=== PATIENT | male | born 1955 | race Caucasian/White ===

== ENCOUNTER → 2017-03-22 | Outpatient (CLI) | payer BC ==
[~2017-03-22] MED LIST: DIPH25TA82 PEG; FAMO-119 PEG; HYDR-757 PEG; LISI40TA PO; LISINOPRIL PO; LVT.1T PEG; METFORMIN PO; MTF500T PO; ONDN4T PEG; SILD20TA2 PEG; TMZP15C PEG; TREP1.743 IH; WARF1TAB6 PEG; WARF6TAB19 PEG; WARFARIN; [UNRECOGNIZED DRUG - OTHER] PEG
--- NOTE | 2017-03-23 11:09 | ECHOCARDIOGRAPHY REPORT ---
DATE OF SERVICE: 03/22/2017 DATE OF SERVICE: 03/22/2017. ORDERING PHYSICIAN: Dr. Ta. CLINICAL DIAGNOSIS: Pulmonary hypertension. MEASUREMENTS: 1. Left atrium 4. 2. Aortic root 3.7. 3. LV diameter, diastolic 4.7. 4. IVS thickness, diastolic 1.2. 5. LVPW thickness, diastolic 1.2. DESCRIPTION: Two-dimensional echocardiography shows normal global left ventricular systolic function with normal regional wall motion. There is mild aortic valve sclerosis. There is no significant pericardial effusion. Doppler imaging shows trivial to mild mitral and tricuspid regurgitation. There is no Doppler evidence of any significant valvular stenosis. Mitral inflow is consistent with grade 1 diastolic dysfunction of the left ventricle. There is no evidence of any significant intracardiac shunt on this transthoracic echocardiographic study. Inferior vena cava is of normal size and does exhibit inspiratory collapse. Pulmonary artery systolic pressure is estimated to be approximately 30-35 mmHg. CONCLUSIONS: 1. Normal global left ventricular systolic function with ejection fraction approximately 60%. 2. Pulmonary artery systolic pressure is estimated at 30-35 mmHg. 3. Trivial mitral and tricuspid regurgitation. 4. Mild aortic valve sclerosis without significant valvular stenosis. 5. Mild diastolic dysfunction of left ventricle is suggested on this study. Job ID: [id number] DocumentID: [id number] Dictated Date: 03/22/2017 18:36:22 Family Practice Doctor Date: 03/23/2017 10:33:56 Dictated By: VICKY CORREA MD, MA, FACP, FACC,
== END ==
LOC: CARD 12:34
PROVIDERS: ATTEND Family Medicine
DX: I27.2 Other secondary pulmonary hypertension (principal); I26.99 Other pulmonary embolism without acute cor pulmonale
CPT/HCPCS: 93306

== ENCOUNTER 2018-05-19 21:00 | Inpatient (IN) | payer BC ==
[~2018-05-19] VITALS: Ht 188 cm; Wt 106.2 kg
[~2018-05-19 21:00] MED LIST changes: -DIPH25TA82 PEG; +DIPH25TA82 PO; -LVT.1T PEG; +LVT.1T PO; -WARF6TAB19 PEG; +WARF6TAB19 PO
[2018-05-19] MEDS ORDERED: ONDANSETRON 4 MG/2 ML (SDV) Z0FRAN IVP ONE (21:15)
[2018-05-19] MEDS ORDERED: NS IV 1000 ML 1,000 ML IV ONE ×2 (21:16→22:59)
[2018-05-19 21:25] LABS: BASOPHILS # (AUTO) 0.1 10^3/uL (0.0-0.1); BASOPHILS % (AUTO) 0 % (0-10); EOSINOPHILS % (AUTO) 0 % (0-10); HEMATOCRIT 44 % (40-54); LYMPHOCYTES # (AUTO) 1.1 X 10^3 (1.0-4.0); LYMPHOCYTES % (AUTO) 6 % (12-44); MEAN CORPUSCULAR HEMOGLOBIN 29 PG (25-34); MEAN CORPUSCULAR HGB CONC 34 G/DL (32-36); MEAN CORPUSCULAR VOLUME 85 FL (80-99); MEAN PLATELET VOLUME 10.9 FL (7.4-10.4); MONOCYTES # (AUTO) 1.6 X 10^3 (0.0-1.0); MONOCYTES % (AUTO) 8 % (0-12); NEUTROPHILS % (AUTO) 85 % (42-75); PLATELET COUNT 216 10^3/uL (130-400); RED BLOOD COUNT 5.18 10^6/uL (4.35-5.85); RED CELL DISTRIBUTION WIDTH 14.5 % (10.0-14.5); WHITE BLOOD COUNT 18.7 10^3/uL (4.3-11.0)
[2018-05-19] MEDS ORDERED: ACETAMINOPHEN 500 MG TAB (TYLENOL) PO ONE (21:30)
[2018-05-19 21:38] LABS: INR 3.3 (0.8-1.4); PROTHROMBIN TIME PATIENT 33.9 SEC (12.2-14.7)
[2018-05-19 21:44] LABS: ALANINE AMINOTRANSFERASE 20 U/L (0-55); ALBUMIN 4.7 GM/DL (3.2-4.5); ALKALINE PHOSPHATASE 89 U/L (40-136); BAND NEUTROPHILS 3 %; BILIRUBIN,TOTAL 0.8 MG/DL (0.1-1.0); BUN/CREATININE RATIO 16; CARBON DIOXIDE 22 MMOL/L (21-32); CHLORIDE 104 MMOL/L (98-107); CREATININE SERUM 0.91 MG/DL (0.60-1.30); GFR ESTIMATED > 60; GLUCOSE 111 MG/DL (70-105); LYMPHOCYTES % (MANUAL) 1 %; MONOCYTES % (MANUAL) 14 %; NEUTROPHILS % (MANUAL) 82 %; RBC MORPH NORMAL; SODIUM 138 MMOL/L (135-145); TOTAL PROTEIN 7.6 GM/DL (6.4-8.2)
[2018-05-19 21:51] LABS: MYOGLOBIN SERUM 59.2 NG/ML (10.0-92.0)
[2018-05-19] MEDS ORDERED: cefTRIAXone INJECTION 1,000 MG in NS (IVPB) 50 ML IV ONE (22:00)
[2018-05-19] MEDS ORDERED: PIPERACILLIN/TAZOBACTAM 3.375 GM in D5W 100 ML IVPB 100 ML IV ONE (22:15)
[2018-05-19 22:23] LABS: BILIRUBIN,URINE NEGATIVE (NEGATIVE); CLARITY,URINE CLEAR; COLOR,URINE YELLOW; GLUCOSE, URINE (UA) NEGATIVE (NEGATIVE); KETONES,URINE NEGATIVE (NEGATIVE); LEUKOCYTE ESTERASE ,URINE 1+ (NEGATIVE); NITRITE,URINE NEGATIVE (NEGATIVE); PH,URINE 7 (5-9); PROTEIN,URINE 2+ (NEGATIVE); UROBILINOGEN,URINE NORMAL (NORMAL)
--- NOTE | 2018-05-19 22:31 | ED General ---
General Chief Complaint: Chest Pain Stated Complaint: LUNGS/CHEST PAIN Nursing Triage Note: PT REPORTS R SIDED CP WORSE WITH DEEP BREATHING AND COUGHING THAT STARTED AT 1500 TODAY. PT ALSO REPORTS NAUSEA AND FEVER. Nursing Sepsis Screen: No Definite Risk Source of Information: Patient, Old Records Exam Limitations: No Limitations History of Present Illness Date Seen by Provider: May 19, 2018 Time Seen by Provider: 21:00 Initial Comments This 62-year-old gentleman presents to the emergency room with fairly abrupt onset of right-sided chest pain and fever at about 15:00 today. Pain is worse with inspiration. Patient is febrile upon presentation. He has not had any significant cough recently. He is notably tachycardic. Patient has history of pulmonary emboli and is presently on warfarin therapy. He also has history of tracheostomy. He still has an open ostomy which he covers with Tegaderm. Allergies and Home Medications Allergies Coded Allergies: nitroglycerin (Verified Adverse Reaction, Intermediate, PULMONARY, 05/15/14) Home Medications Diphenhydramine Hcl 25 Mg Tablet, 12.5-25 MG PEG HS, (Reported) Famotidine 20 Mg Tablet, 20 MG PEG BID, (Reported) Hydrocodone Bit/Acetaminophen 1 Each Tablet, 1 TAB PEG Q4H PRN for MILD PAIN, ( Reported) Levothyroxine Sodium 100 Mcg Tablet, 100 MCG PEG HS, (Reported) Ondansetron Hcl 4 Mg Tab, 4 MG PEG Q6H PRN for NAUSEA/VOMITING, (Reported) Sildenafil Citrate 20 Mg Tablet, 20 MG PEG TID, (Reported) Temazepam 15 Mg Capsule, 15 MG PEG HS, (Reported) Treprostinil 1.74 Mg/2.9 Ml Ampul.neb, 9 PUFF IH QID, (Reported) Warfarin Sodium 6 Mg Tablet, 6 MG PEG HS, (Reported) TAKE 1 (6MG) AND 1 (1MG) TO EQUAL 7MG Warfarin Sodium 1 Mg Tablet, 1 MG PEG HS, (Reported) TAKE 1 (6MG) AND 1 (1MG) TO EQUAL 7MG Patient Home Medication List Home Medication List Reviewed: Yes Review of Systems Constitutional: see HPI EENTM: no symptoms reported Respiratory: see HPI Cardiovascular: see HPI Gastrointestinal: no symptoms reported Genitourinary: no symptoms reported Musculoskeletal: no symptoms reported Skin: no symptoms reported Psychiatric/Neurological: No Symptoms Reported Hematologic/Lymphatic: See HPI Immunological/Allergic: no symptoms reported Past Eegevjo-Ikohtl-Frlsqr Hx Past Med/Social Hx: Reviewed and Corrections made Patient Social History Alcohol Use: Denies Use Recreational Drug Use: No Smoking Status: Former Smoker Type Used: Cigarettes Former Smoker, Quit: May 10, 2000 Recent Foreign Travel: No Contact w/Someone Who Travel: No Recent Infectious Disease Expo: No Physical Abuse: No Sexual Abuse: No Mistreated: No Fear: No Seasonal Allergies Seasonal Allergies: No Past Medical History Surgeries: Yes (post placement (left groshong),PEG TUBE,CATRINA DRAIN, DETACHED RETINA) Abdominal, Eye Surgery, Tonsillectomy, Tracheostomy Respiratory: Yes (RESP FAILURE, PULMONARY HTN) Pneumonia, Pulmonary Embolism Cardiac: Yes High Cholesterol Neurological: No Reproductive Disorders: No Sexually Transmitted Disease: No HIV/AIDS: No Genitourinary: No Gastrointestinal: Yes (DIVERTICULITIS with history of perforation requiring surgery) Musculoskeletal: No Endocrine: Yes (THYROID DESTROYED DUE TO RADIATION) Hypothyroidsim, Diabetes, Non-Insulin dep Cancer: Yes ( TONSILLAR S/P CHEMO AND RADIATION, NO SURGERY) Psychosocial: No Nursing Suicide Risk Score: 0 Integumentary: No Blood Disorders: Yes (ANEMIA) Physical Exam-Suspected Sepsis Physical Exam Vital Signs Vital Signs - First Documented 05/19/18 21:10 Temp 102.0 Pulse 118 Resp 20 B/P (MAP) 130/90 (103) Pulse Ox 95 O2 Delivery Room Air Capillary Refill : Less Than 3 Seconds Blood Pressure Mean: 103 Height, Weight, BMI Height: 6'2.00" Weight: 210lbs. oz. 95.328734my; BMI Method:Stated General Appearance: No Apparent Distress, WD/WN HEENT: PERRL/EOMI, Normal ENT Inspection Neck: Normal Inspection Respiratory: Lungs Clear, Normal Breath Sounds, No Accessory Muscle Use, No Respiratory Distress Cardiovascular: No Edema, No Murmur, Tachycardia Gastrointestinal: Normal Bowel Sounds, Non Tender, Soft Extremity: Normal Inspection, No Pedal Edema Neurologic/Psychiatric: Alert, Oriented x3, No Motor/Sensory Deficits, Normal Mood/Affect, histology tech II-XII Norm as Tested Skin: normal color, warm/dry Focused Exam Lactate Level 05/19/18 21:05: Lactic Acid Level 1.23 Lactic Acid Level Laboratory Tests Test 05/19/18 21:05 Lactic Acid Level 1.23 MMOL/L (0.50-2.00) Progress/Results/Core Measures Suspected Sepsis Recent Fever Within 48 Hours: Yes Infection Criteria Present: None New/Unexplained Altered Menta: No Sepsis Screen: No Definite Risk SIRS Temperature:102.0 Pulse: 118 Respiratory Rate: 20 Laboratory Tests 05/19/18 21:05: White Blood Count 18.7H Blood Pressure 130 /90 Mean: 103 05/19/18 21:05: Lactic Acid Level 1.23 Laboratory Tests 05/19/18 21:05: Creatinine 0.91, INR Comment 3.3H, Platelet Count 216, Total Bilirubin 0.8 Results/Orders Lab Results Laboratory Tests Test 05/19/18 21:05 05/19/18 22:18 Range/Units White Blood Count 18.7 H 4.3-11.0 10^3/uL Red Blood Count 5.18 4.35-5.85 10^6/uL Hemoglobin 15.0 13.3-17.7 G/DL Hematocrit 44 40-54 % Mean Corpuscular Volume 85 80-99 FL Mean Corpuscular Hemoglobin 29 25-34 PG Mean Corpuscular Hemoglobin Concent 34 32-36 G/DL Red Cell Distribution Width 14.5 10.0-14.5 % Platelet Count 216 130-400 10^3/uL Mean Platelet Volume 10.9 H 7.4-10.4 FL Neutrophils (%) (Auto) 85 H 42-75 % Lymphocytes (%) (Auto) 6 L 12-44 % Monocytes (%) (Auto) 8 0-12 % Eosinophils (%) (Auto) 0 0-10 % Basophils (%) (Auto) 0 0-10 % Neutrophils # (Auto) 16.0 H 1.8-7.8 X 10^3 Lymphocytes # (Auto) 1.1 1.0-4.0 X 10^3 Monocytes # (Auto) 1.6 H 0.0-1.0 X 10^3 Eosinophils # (Auto) 0.0 0.0-0.3 10^3/uL Basophils # (Auto) 0.1 0.0-0.1 10^3/uL Neutrophils % (Manual) 82 % Lymphocytes % (Manual) 1 % Monocytes % (Manual) 14 % Band Neutrophils 3 % Blood Morphology Comment NORMAL Prothrombin Time 33.9 H 12.2-14.7 SEC INR Comment 3.3 H 0.8-1.4 Activated Partial Thromboplast Time 51 H 24-35 SEC Sodium Level 138 135-145 MMOL/L Potassium Level 4.0 3.6-5.0 MMOL/L Chloride Level 104 98-107 MMOL/L Carbon Dioxide Level 22 21-32 MMOL/L Anion Gap 12 5-14 MMOL/L Blood Urea Nitrogen 15 7-18 MG/DL Creatinine 0.91 0.60-1.30 MG/DL Estimat Glomerular Filtration Rate > 60 BUN/Creatinine Ratio 16 Glucose Level 111 H 70-105 MG/DL Lactic Acid Level 1.23 0.50-2.00 MMOL/L Calcium Level 10.0 8.5-10.1 MG/DL Magnesium Level 2.0 1.8-2.4 MG/DL Total Bilirubin 0.8 0.1-1.0 MG/DL Aspartate Amino Transf (AST/SGOT) 20 5-34 U/L Alanine Aminotransferase (ALT/SGPT) 20 0-55 U/L Alkaline Phosphatase 89 40-136 U/L Myoglobin 59.2 10.0-92.0 NG/ML Troponin I < 0.30 <0.30 NG/ML Total Protein 7.6 6.4-8.2 GM/DL Albumin 4.7 H 3.2-4.5 GM/DL Urine Color YELLOW Urine Clarity CLEAR Urine pH 7 5-9 Urine Specific Moriarty 1.010 L 1.016-1.022 Urine Protein 2+ H NEGATIVE Urine Glucose (UA) NEGATIVE NEGATIVE Urine Ketones NEGATIVE NEGATIVE Urine Nitrite NEGATIVE NEGATIVE Urine Bilirubin NEGATIVE NEGATIVE Urine Urobilinogen NORMAL NORMAL MG/DL Urine Leukocyte Esterase 1+ H NEGATIVE Urine RBC (Auto) 2+ H NEGATIVE Urine RBC 2-5 H /HPF Urine WBC 0-2 /HPF Urine Crystals NONE /LPF Urine Bacteria FEW H /HPF Urine Casts NONE /LPF Urine Mucus NEGATIVE /LPF Urine Culture Indicated NO My Orders Orders - FELI MCPHERSON MD Ondansetron Injection (Zofran Injectio (05/19/18 21:15) Cbc With Automated Diff (05/19/18 21:14) Magnesium (05/19/18 21:14) Ekg Tracing (05/19/18 21:14) Cardiac Profile 1 (05/19/18 21:14) Comprehensive Metabolic Panel (05/19/18 21:14) Myoglobin Serum (05/19/18 21:14) Protime With Inr (05/19/18 21:14) Partial Thromboplastin Time (05/19/18 21:14) O2 (05/19/18 21:14) Monitor-Rhythm Ecg Trace Only (05/19/18 21:14) Lipid Panel (05/20/18 06:00) Saline Lock/Iv-Start (05/19/18 21:14) Lactic Acid Analyzer (05/19/18 21:16) Blood Culture (05/19/18 21:16) Sputum Culture (05/19/18 21:16) Ua Culture If Indicated (05/19/18 21:16) Vital Signs Adult Sepsis Patie Q15M (05/19/18 21:16) Remove Rings In Anticipation O (05/19/18 21:16) Ns Iv 1000 Ml (Sodium Chloride 0.9%) (05/19/18 21:16) Acetaminophen Tablet (Tylenol Tablet) (05/19/18 21:30) Manual Differential (05/19/18 21:05) Chest Pa/Lat (2 View) (05/19/18 21:37) Ceftriaxone Injection (Rocephin Injectio (05/19/18 22:00) Piperacillin/Tazobactam (Zosyn Vial) (05/19/18 22:15) Medications Given in ED Current Medications Medications Dose Ordered Sig/Nika Route Start Time Stop Time Status Last Admin Dose Admin Acetaminophen 1,000 mg ONCE ONCE PO 05/19/18 21:30 05/19/18 21:31 DC 05/19/18 21:26 1,000 MG Ondansetron HCl 8 mg ONCE ONCE IVP 05/19/18 21:15 05/19/18 21:16 DC 05/19/18 21:26 8 MG Sodium Chloride 1,000 ml @ 0 mls/hr Q0M ONCE IV 05/19/18 21:16 05/19/18 21:18 DC 05/19/18 21:26 0 MLS/HR Vital Signs/I&O 05/19/18 05/19/18 21:10 21:10 Temp 102.0 Pulse 118 Resp 20 B/P (MAP) 130/90 (103) Pulse Ox 95 O2 Delivery Room Air Capillary Refill : Less Than 3 Seconds Blood Pressure Mean: 103 Progress Note : Progress Note Septic workup was pursued. Patient was found to have infiltrate on the right upper lobe. Patient was treated for pneumonia with Zosyn. A liter of IV fluids was also administered along with Tylenol for fever. ECG Initial ECG Impression Date: May 19, 2018 Initial ECG Impression Time: 21:00 Initial ECG Rate: 117 Initial ECG Rhythm: S.Tach Comment Sinus tachycardia with no ST elevation or depression to suggest ischemia. No significant axis deviation or abnormal intervals. Diagnostic Imaging Diagonstic Imaging: Xray Plain Films/CT/US/NM/MRI: chest Comments Infiltrate in the right upper lobe suspicious for pneumonia. Images viewed by me. Report not yet available. Departure Communication (Admissions) Time/Spoke to Admitting Phy: 22:10 Case was reviewed with Dr. Medrano. She requests patient be admitted to Dr. Donis 's hospitalist panel. She recommends Zosyn as initial antibiotic therapy for treatment of pneumonia with sepsis. We also discussed patient's Coumadin dosing given his hypertherapeutic INR. She recommends holding his dose this evening. Pseudomonal Risk: Other (tracheostomy) Pneumonia order set available: CAP w/Pseudomonas risk Impression Primary Impression: Severe sepsis Additional Impressions: Right upper lobe pneumonia Qualified Codes: J18.1 - Lobar pneumonia, unspecified organism Anticoagulated Disposition: HOME, SELF-CARE Condition: Improved Admissions Decision to Admit Reason: Admit from ER (General) Decision to Admit/Date: May 19, 2018 Time/Decision to Admit Time: 22:00 Departure-Patient Inst. Referrals: IRA LOPEZ DO (PCP/Family) Primary Care Physician FELI MCPHERSON MD May 19, 2018 22:31
[2018-05-19 22:35] LABS: BACTERIA,URINE FEW /HPF; WBC,URINE 0-2 /HPF
[2018-05-20] VITALS (14 sets, daily range): BP systolic 79–136; BP diastolic 43–90
[2018-05-20] MEDS: NS IV 1000 ML 1,000 ML IV SCH ×4 (00:49→21:28)
[2018-05-20] MEDS ORDERED: RT-ALBUTEROL/IPRATROPIUM 3 ML (DUONEB) VIAL INH PRN (01:15)
[2018-05-20] MEDS ORDERED: ATOR20TA66 PO (01:51)
[2018-05-20] MEDS: PIPERACILLIN/TAZOBACTAM 3.375 GM in NS (IVPB) 100 ML IV SCH ×3 (03:47→19:36)
[2018-05-20] MEDS: ACETAMINOPHEN 500 MG TAB (TYLENOL) PO PRN ×2 (04:50→12:37)
[2018-05-20] MEDS: LEVOTHYROXINE 150 MCG (LEVOTHROID) TAB PO SCH (05:54)
[2018-05-20 06:46] LABS: BASOPHILS % (AUTO) 0 % (0-10); EOSINOPHILS # (AUTO) 0.1 10^3/uL (0.0-0.3); EOSINOPHILS % (AUTO) 1 % (0-10); HEMATOCRIT 36 % (40-54); HEMOGLOBIN 12.1 G/DL (13.3-17.7); LYMPHOCYTES # (AUTO) 1.8 X 10^3 (1.0-4.0); LYMPHOCYTES % (AUTO) 9 % (12-44); MEAN CORPUSCULAR HEMOGLOBIN 29 PG (25-34); MEAN CORPUSCULAR HGB CONC 34 G/DL (32-36); MEAN CORPUSCULAR VOLUME 87 FL (80-99); MEAN PLATELET VOLUME 11.3 FL (7.4-10.4); MONOCYTES # (AUTO) 1.7 X 10^3 (0.0-1.0); MONOCYTES % (AUTO) 9 % (0-12); NEUTROPHILS # (AUTO) 15.6 X 10^3 (1.8-7.8); NEUTROPHILS % (AUTO) 81 % (42-75); PLATELET COUNT 178 10^3/uL (130-400); RED BLOOD COUNT 4.13 10^6/uL (4.35-5.85); RED CELL DISTRIBUTION WIDTH 14.3 % (10.0-14.5); WHITE BLOOD COUNT 19.2 10^3/uL (4.3-11.0)
[2018-05-20 07:00] LABS: INR 3.7 (0.8-1.4); PROTHROMBIN TIME PATIENT 36.6 SEC (12.2-14.7)
--- NOTE | 2018-05-20 07:00 | Diagnostic Imaging Report ---
INDICATION: Right-sided chest pain. Time of exam 10:08 PM Correlation is made with prior study from 05/15/2014. Changes of median sternotomy and CABG are noted. There is a mass versus infiltrate in the right upper lobe. Remainder of the lung daley are clear. No effusion or pneumothorax is seen. IMPRESSION: Abnormal opacity in the right upper lobe. While this may represent a pneumonic infiltrate, mass cannot be excluded. Short interval followup after course of therapy is recommended to confirm clearing. Dictated by: Dictated on workstation # [id number]
[2018-05-20 07:05] LABS: BUN/CREATININE RATIO 18; CALCIUM 8.5 MG/DL (8.5-10.1); CARBON DIOXIDE 23 MMOL/L (21-32); CHLORIDE 109 MMOL/L (98-107); CREATININE SERUM 0.89 MG/DL (0.60-1.30); GFR ESTIMATED > 60; GLUCOSE 105 MG/DL (70-105); POTASSIUM 3.9 MMOL/L (3.6-5.0); SODIUM 139 MMOL/L (135-145)
[2018-05-20 07:07] LABS: CHOLESTEROL 136 MG/DL (< 200); HDL CHOLESTEROL 33 MG/DL (40-60); TRIGLYCERIDES 123 MG/DL (<150); VLDL CHOLESTEROL 25 MG/DL (5-40)
[2018-05-20] MEDS ORDERED: RT-ALBUTEROL/IPRATROPIUM 3 ML (DUONEB) VIAL INH ONE (08:00)
--- NOTE | 2018-05-20 09:07 | History & Physical-Hospitalist ---
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 He states he was feeling well up until yesterday at 1600 and then he developed chest pain with deep breathes and fever. He continued to feel worse so presented to the ER. He denies any sputum but has had a cough. He was also at [employer] ( daycare) recently and exposed to multiple sick contacts. He no longer has a trach in place but does have an open ostomy covered with Tegaderm for which he follows with Dr Garcia. He was found to have a RUL PNA and was hypotensive on arrival. He was admitted for severe sepsis. Source: patient Exam Limitations: no limitations Date Seen 05/20/18 Time Seen by Provider: 09:30 Attending Physician Hever Ta DO PCP Hever Ta DO Referring Physician Date of Admission May 19, 2018 at 10:41 pm Home Medications & Allergies Home Medications Reviewed patient Home Medication Reconciliation performed by pharmacy medication reconciliations specimen technician and/or nursing. Patients Allergies have been reviewed. Allergies Allergies Coded Allergies nitroglycerin (Verified Adverse Reaction, Intermediate, PULMONARY, 05/15/14) Past Xnqaels-Gtiocq-Qywhle Hx Past Med/Social Hx: Reviewed and Corrections made Patient Social History Alcohol Use: Denies Use Recreational Drug Use: No Smoking Status: Former Smoker Former Smoker, Quit: May 10, 2000 Type Used: Cigarettes Physical Abuse Screen: No Sexual Abuse: No Recent Foreign Travel: No Contact w/other who traveled: No Recent Hopitalizations: No Recent Infectious Disease Expo: No Seasonal Allergies Seasonal Allergies: No Past Medical History Surgeries: Abdominal, Eye Surgery, Tonsillectomy, Tracheostomy Respiratory: Pulmonary Embolism pulmonary hypertension, previous tracheostomy Currently Using CPAP: No Currently Using BIPAP: No Cardiac: High Cholesterol Reproductive: No Sexually Transmitted Disease: No HIV/AIDS: No Gastrointestinal: C-Diff Endocrine: Hypothyroidsim, Diabetes, Non-Insulin dep Did You Recieve Any Treatments: Yes What Type of Treatment Did You: Chemotherapy, Radiation Cancer: Tonsilar cancer History of Blood Disorders: Yes (ANEMIA) Family History Reviewed Nursing Family Hx No Pertinent Family Hx Review of Systems Constitutional: fever, malaise EENTM: no symptoms reported Respiratory: see HPI, cough; No phlegm, No short of breath, No stridor, No wheezing Cardiovascular: see HPI, chest pain; No palpitations Gastrointestinal: No abdominal pain, No nausea, No vomiting Genitourinary: no symptoms reported Musculoskeletal: no symptoms reported Skin: no symptoms reported Psychiatric/Neurological: No Symptoms Reported Physical Exam Physical Exam Vital Signs Vital Signs - First Documented 05/19/18 05/20/18 21:10 00:52 Temp 102.0 Pulse 118 Resp 20 B/P (MAP) 130/90 (103) Pulse Ox 95 O2 Delivery Room Air FiO2 21 Capillary Refill : Less Than 3 Seconds Height, Weight, BMI Height: 6'2.00" Weight: 234lbs. 2.0oz. 106.225495kk; 30.1 BMI Method:Stated General Appearance: No Apparent Distress, WD/WN HEENT: No Scleral Icterus (L), No Scleral Icterus (R) Neck: No JVD; Other (open ostomy covered in tegaderm from previous tracheostomy ) Respiratory: Lungs Clear, No Accessory Muscle Use, No Respiratory Distress Cardiovascular: Regular Rate, Rhythm, No Murmur Gastrointestinal: Normal Bowel Sounds, Non Tender, Soft Extremity: Normal Capillary Refill, Non Tender, No Calf Tenderness, No Pedal Edema Neurologic/Psychiatric: Alert, Oriented x3, Normal Mood/Affect Skin: Normal Color, Warm/Dry Results Results/Procedures Labs Laboratory Tests 05/19/18 21:05 05/20/18 06:10 05/21/18 05:23 Patient resulted labs reviewed. Imaging: Reviewed Imaging Report Assessment/Plan Admission Diagnosis Severe Sepsis Admission Status: Inpatient Order (span 2 midnights) Reason for Inpatient Admission: IV abx Diagnosis/Problems Diagnosis/Problems (1) Severe sepsis Status: Acute Assessment & Plan: Leukocytosis, febrile, and tachycardiac on arrival with RUL PNA on CXR Hypotensive in ER Met severe sepsis criteria s/p 2L NS bolus Continue IVF, BP improved this AM with adequate MAP Continue Zosyn Blood cultures ordered- pending (2) Right upper lobe pneumonia Status: Acute Assessment & Plan: RUL pna on CXR Will need repeat imaging to make sure clears and that there is no mass Continue Zosyn Qualifiers: Pneumonia type: due to unspecified organism Qualified Codes: J18.1 - Lobar pneumonia, unspecified organism (3) Supratherapeutic INR Assessment & Plan: On Warfarin for history of PE Holding for supratherapeutic INR No evidence of bleeding- no need to reverse at this time (4) History of pulmonary embolism Assessment & Plan: On Warfarin as above Clinical Quality Measures AMI/AHF: ASA po Prior to arrival: No DVT/VTE Risk/Contraindication: Risk Factor Score Per Nursin RFS Level Per Nursing on Admit: 3=High Sepsis: Within 3hrs of presentation: Admin fluids, Admin ABX, Blood cultures prior to ABX's, Lactate level Pneumonia: Pseudomonal Risk: Other (tracheostomy) MARTI MARKS MD May 20, 2018 09:07
--- NOTE | 2018-05-20 09:42 | Diagnostic Imaging Report ---
INDICATION: Right upper lobe pneumonia and sepsis. TIME OF EXAM: 09:50 a.m. Correlation is made with prior study one day earlier. Changes of median sternotomy are noted. Infiltrate right upper lobe is again noted may be slightly improved. Remainder of lung daley appear to be fairly clear. No effusion or pneumothorax is seen. IMPRESSION: Right upper lobe infiltrate perhaps slightly improved. Continued followup after course of therapy is recommended to confirm complete clearing. Dictated by: Dictated on workstation # [id number]
[2018-05-20] MEDS: RT-ALBUTEROL/IPRATROPIUM 3 ML (DUONEB) VIAL INH SCH (21:21)
[2018-05-21] VITALS: BP 134/63
[2018-05-21] MEDS: ACETAMINOPHEN 500 MG TAB (TYLENOL) PO PRN (00:40)
[2018-05-21] MEDS: NS IV 1000 ML 1,000 ML IV SCH ×4 (03:50→23:55)
[2018-05-21] MEDS: PIPERACILLIN/TAZOBACTAM 3.375 GM in NS (IVPB) 100 ML IV SCH ×3 (03:50→20:12)
[2018-05-21 04:00] VITALS: BP 112/60
[2018-05-21] MEDS: LEVOTHYROXINE 150 MCG (LEVOTHROID) TAB PO SCH (05:21)
[2018-05-21 06:11] LABS: BASOPHILS # (AUTO) 0.1 10^3/uL (0.0-0.1); BASOPHILS % (AUTO) 0 % (0-10); EOSINOPHILS # (AUTO) 0.2 10^3/uL (0.0-0.3); EOSINOPHILS % (AUTO) 1 % (0-10); HEMATOCRIT 38 % (40-54); HEMOGLOBIN 12.4 G/DL (13.3-17.7); LYMPHOCYTES # (AUTO) 1.4 X 10^3 (1.0-4.0); LYMPHOCYTES % (AUTO) 9 % (12-44); MEAN CORPUSCULAR HEMOGLOBIN 29 PG (25-34); MEAN CORPUSCULAR HGB CONC 33 G/DL (32-36); MEAN CORPUSCULAR VOLUME 87 FL (80-99); MEAN PLATELET VOLUME 11.8 FL (7.4-10.4); MONOCYTES # (AUTO) 1.6 X 10^3 (0.0-1.0); MONOCYTES % (AUTO) 10 % (0-12); NEUTROPHILS # (AUTO) 12.1 X 10^3 (1.8-7.8); NEUTROPHILS % (AUTO) 79 % (42-75); PLATELET COUNT 167 10^3/uL (130-400); RED BLOOD COUNT 4.33 10^6/uL (4.35-5.85); RED CELL DISTRIBUTION WIDTH 14.9 % (10.0-14.5); WHITE BLOOD COUNT 15.4 10^3/uL (4.3-11.0)
[2018-05-21 06:32] LABS: BUN/CREATININE RATIO 15; CALCIUM 9.3 MG/DL (8.5-10.1); CARBON DIOXIDE 22 MMOL/L (21-32); CHLORIDE 111 MMOL/L (98-107); CREATININE SERUM 0.75 MG/DL (0.60-1.30); GFR ESTIMATED > 60; GLUCOSE 92 MG/DL (70-105); POTASSIUM 4.1 MMOL/L (3.6-5.0); SODIUM 139 MMOL/L (135-145)
--- OUTSIDE RECORDS SUMMARY | 2018-05-21 07:07 | XMS REPORT | Clinical Summary ---
Author Author [facility] Organization [facility] Address Unknown Phone Unavailable Care Team Providers Care Management Liaison Name Role Phone Timothy Sebastian MD Unavailable Cruzito Jackson MD Unavailable Bill Goodrich MD Unavailable Unavailable Angella Rodrgiuez APRN Unavailable Jasbir Cullen MD Unavailable Gianna Sales MD Unavailable Christopher Chavarria MD Unavailable Abbey Licona RN Unavailable Unavailable Tani Galdamez MD Unavailable [place] [employer] REPAIRER Unavailable Mickie Campos MD Unavailable Aline Azar RN Unavailable Unavailable Hever Ta DO PCP German Rainey RN Unavailable Unavailable Yumi Quiroz RN Unavailable Unavailable Flora Cespedes MD Unavailable Luis Torrez RN Unavailable Unavailable Lexy Gong RN Unavailable Unavailable Nguyen Malhotra Unavailable Unavailable Source Comments Some departments are not documenting in the electronic medical record. If you do not see the information that you expected, contact Release of Information in the Health Information Management department at [phone] for further assistance in locating additional records.[facility] Allergies Active Allergy Reactions Severity Noted Date Comments Nitroglycerin SEE COMMENTS 04/25/2014 Interaction with Pulmonary Hypertension medications. Current Medications Prescription Sig. Disp. Refills Start End Date Status Date warfarin (COUMADIN) 10 mg Take 10 mg by mouth Active tablet daily. hold after 04/08/15 dose, resume post procedure per procedure physician levothyroxine (SYNTHROID) Take 125 mcg by mouth Active 125 mcg tablet daily. atorvastatin (LIPITOR) 20 Take 20 mg by mouth Active mg tablet daily. 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 Has patient been referred for transplant? Have palliative approaches been discussed? 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 Type II diabetes mellitus (HCC) 06/24/2011 Resolved Problems Problem Noted Date Resolved Date JAIRON (acute kidney injury) (HCC) 05/17/2014 04/14/2015 Abdominal pain 05/16/2014 04/14/2015 Pneumonia 04/16/2014 04/14/2015 Shock (HCC) 04/16/2014 04/14/2015 Peritonitis (HCC) 04/16/2014 04/14/2015 Ileus (HCC) 04/16/2014 04/14/2015 Severe malnutrition (HCC) 04/16/2014 04/14/2015 JAIRON (acute kidney injury) (HCC) 04/16/2014 04/16/2014 Anemia 04/16/2014 04/14/2015 Leukocytosis 04/16/2014 04/14/2015 Septic shock (HCC) 04/16/2014 04/16/2014 Acute respiratory failure (HCC) 04/08/2014 04/14/2015 Severe sepsis (HCC) 04/08/2014 04/14/2015 Diverticulitis 03/28/2014 04/14/2015 Airway obstruction 02/23/2013 04/14/2015 Immunizations Name Dates Previously Given Next Due Flu Vaccine Trivalent=>3 10/23/2015, 11/14/2014 Yo (Preservative Free) Pneumococcal Vaccine 04/26/2014 (23-Xochitl Adult) Family History Medical History Relation Name Comments Asthma Brother Cancer Father Cancer-Prostate Father Cancer Mother Relation Name Status Comments Brother Father Mother Social History Tobacco Use Types Packs/Day Years Used Date Former Smoker Cigarettes 1 20 Quit: 06/24/2005 Smokeless Tobacco: Never Used Alcohol Use Drinks/Week oz/Week Comments No 8 oz of rogelio a week Sex Assigned at Date Recorded Not on file Last Filed Vital Signs Vital Sign Reading Time Taken Blood Pressure 134/88 04/25/2017 10:51 AM CDT Pulse 72 04/25/2017 10:51 AM CDT Temperature 36.7 C (98 F) 04/25/2017 10:51 AM CDT Respiratory Rate 16 04/25/2017 10:51 AM CDT Oxygen Saturation 97% 04/25/2017 10:51 AM CDT Inhaled Oxygen - - Concentration Weight 104 kg (229 lb 3.2 oz) 04/25/2017 10:51 AM CDT Height 188 cm (6' 2") 04/25/2017 10:51 AM CDT Body Mass Index 29.43 04/25/2017 10:51 AM CDT Plan of Treatment Health Maintenance Due Date Last Done Comments HEPATITIS C SCREENING 1956 PHYSICAL (COMPREHENSIVE) 1963 EXAM PERTUSSIS VACCINE 1967 TETANUS VACCINE 1973 DILATED EYE EXAM 1974 FOOT EXAM 1974 HBA1C 1974 MICROALBUMIN 1974 SHINGLES RECOMBINANT 2006 VACCINE (1 of 2) INFLUENZA VACCINE 08/07/2018 10/23/2015, 11/14/2014 COLORECTAL CANCER 05/13/2025 05/13/2015, 03/10/2015 SCREENING HIV SCREENING Completed 04/16/2014 PNEUMONIA VACCINE (DM) Completed 04/26/2014 Results Not on filefrom Last 3 Months
--- OUTSIDE RECORDS SUMMARY | 2018-05-21 07:17 | XMS REPORT | Continuity of Care Document ---
Author Author [facility] Organization [facility] Address Unknown Phone Unavailable Allergies Active Description Code Type Severity Reaction Onset Reported/Identified Relationship to Patient Clinical Status Yes nitroglycerin [id number] Drug Allergy Moderate PULMONARY 05/15/2014 Medications There is no data. Problems Date Dx Coded Attending Type Code Diagnosis Diagnosed By 05/15/2014 AVNI CONRAD Ot 038.9 SEPTICEMIA NOS 05/15/2014 AVNI CONRAD Ot 562.11 DIVERTICULITIS COLON (W/O MENT OF HEMORR 05/15/2014 AVNI CONRAD Ot 584.9 ACUTE RENAL FAILURE, UNSPECIFIED 05/15/2014 AVNI CONRAD Ot 793.19 OTHER NONSPECIFIC ABNORMAL FINDING OF MAE 05/15/2014 AVNI CONRAD Ot 799.02 HYPOXEMIA 05/15/2014 AVNI CONRAD Ot 995.92 SEVERE SEPSIS 03/17/2016 IRA LOPEZ DO Ot 787.91 DIARRHEA 03/17/2016 Ot V58.61 ANTICOAGULANTS,LT,CURRENT USE 03/17/2016 Ot V58.83 ENCOUNTER FOR THERAPEUTIC DRUG MONITORIN 03/23/2016 GELLENDER IRA [place] Ot 787.91 DIARRHEA 03/23/2016 Ot V58.61 ANTICOAGULANTS,LT,CURRENT USE 03/23/2016 Ot V58.83 ENCOUNTER FOR THERAPEUTIC DRUG MONITORIN 03/24/2016 GELLENDER IRA [place] Ot I27.2 OTHER SECONDARY PULMONARY HYPERTENSION 04/01/2016 GELLENDER DOIRA Ot I27.2 OTHER SECONDARY PULMONARY HYPERTENSION 04/07/2016 GELVANNADER IRA [place] Ot I27.2 OTHER SECONDARY PULMONARY HYPERTENSION 04/16/2016 GELLENDER DOIRA Ot I27.2 OTHER SECONDARY PULMONARY HYPERTENSION 03/21/2017 GELLENDER IRA [place] Ot 787.91 DIARRHEA 03/21/2017 Ot V58.61 ANTICOAGULANTS,LT,CURRENT USE 03/21/2017 Ot V58.83 ENCOUNTER FOR THERAPEUTIC DRUG MONITORIN 03/21/2017 GELLENDER DO, IRA Proctor Ot I27.2 OTHER SECONDARY PULMONARY HYPERTENSION 03/21/2017 GELLENDER DO, IRA Proctor Ot I27.2 OTHER SECONDARY PULMONARY HYPERTENSION 03/22/2017 GELLENDER DO, IRA Proctor Ot 787.91 DIARRHEA 03/22/2017 Ot V58.61 ANTICOAGULANTS,LT,CURRENT USE 03/22/2017 Ot V58.83 ENCOUNTER FOR THERAPEUTIC DRUG MONITORIN 03/22/2017 GELLENDER DO, IRA Proctor Ot I27.2 OTHER SECONDARY PULMONARY HYPERTENSION 03/22/2017 GELLENDER DO, IRA Proctor Ot I27.2 OTHER SECONDARY PULMONARY HYPERTENSION 03/22/2017 GELLENDER DO, IRA Proctor Ot 787.91 DIARRHEA 03/22/2017 Ot V58.61 ANTICOAGULANTS,LT,CURRENT USE 03/22/2017 Ot V58.83 ENCOUNTER FOR THERAPEUTIC DRUG MONITORIN 03/22/2017 GELLENDER DO, IRA Proctor Ot I27.2 OTHER SECONDARY PULMONARY HYPERTENSION 03/22/2017 GELLENDER DO, IRA Proctor Ot I27.2 OTHER SECONDARY PULMONARY HYPERTENSION 04/06/2017 GELLENDER DO, IRA Proctor Ot I26.99 OTHER PULMONARY EMBOLISM WITHOUT ACUTE C 04/06/2017 GELLENDER DO, IRA Proctor Ot I27.2 OTHER SECONDARY PULMONARY HYPERTENSION 05/19/2018 GELLENDER DO, IRA Proctor Ot 787.91 DIARRHEA 05/19/2018 Ot V58.61 ANTICOAGULANTS,LT,CURRENT USE 05/19/2018 Ot V58.83 ENCOUNTER FOR THERAPEUTIC DRUG MONITORIN 05/19/2018 GELLENDER DO, IRA Proctor Ot I27.2 OTHER SECONDARY PULMONARY HYPERTENSION 05/19/2018 GELLENDER DO, IRA Proctor Ot I27.2 OTHER SECONDARY PULMONARY HYPERTENSION 05/19/2018 GELLENDER DO, IRA Hitesh Ot I26.99 OTHER PULMONARY EMBOLISM WITHOUT ACUTE C 05/19/2018 GELLENDER DO, IRA Hitesh Ot I27.2 OTHER SECONDARY PULMONARY HYPERTENSION Procedures There is no data. Results Test Result Range Complete blood count (CBC) with automated white blood cell (WBC) differential - 05/19/18 21:05 Blood leukocytes automated count (number/volume) 18.7 10*3/uL 4.3-11.0 Blood erythrocytes automated count (number/volume) 5.18 10*6/uL 4.35-5.85 Venous blood hemoglobin measurement (mass/volume) 15.0 g/dL 13.3-17.7 Blood hematocrit (volume fraction) 44 % 40-54 Automated erythrocyte mean corpuscular volume 85 [foz_us] 80-99 Automated erythrocyte mean corpuscular hemoglobin (mass per erythrocyte) 29 pg 25-34 Automated erythrocyte mean corpuscular hemoglobin concentration measurement ( mass/volume) 34 g/dL 32-36 Automated erythrocyte distribution width ratio 14.5 % 10.0-14.5 Automated blood platelet count (count/volume) 216 10*3/uL 130-400 Automated blood platelet mean volume measurement 10.9 [foz_us] 7.4-10.4 Automated blood neutrophils/100 leukocytes 85 % 42-75 Automated blood lymphocytes/100 leukocytes 6 % 12-44 Blood monocytes/100 leukocytes 8 % 0-12 Automated blood eosinophils/100 leukocytes 0 % 0-10 Automated blood basophils/100 leukocytes 0 % 0-10 Blood neutrophils automated count (number/volume) 16.0 10*3 1.8-7.8 Blood lymphocytes automated count (number/volume) 1.1 10*3 1.0-4.0 Blood monocytes automated count (number/volume) 1.6 10*3 0.0-1.0 Automated eosinophil count 0.0 10*3/uL 0.0-0.3 Automated blood basophil count (count/volume) 0.1 10*3/uL 0.0-0.1 Blood lactic acid measurement (moles/volume) - 05/19/18 21:05 Blood lactic acid measurement (moles/volume) 1.23 mmol/L 0.50-2.00 Blood manual differential performed detection - 05/19/18 21:05 Blood monocytes/100 leukocytes 14 % NR Manual blood segmented neutrophils/100 leukocytes 82 % NRG Blood band neutrophils/100 leukocytes 3 % NRG Manual blood lymphocytes/100 leukocytes 1 % NRG Blood erythrocyte morphology finding identification [facility] Comprehensive metabolic panel - 05/19/18 21:05 Serum or plasma sodium measurement (moles/volume) 138 mmol/L 135-145 Serum or plasma potassium measurement (moles/volume) 4.0 mmol/L 3.6-5.0 Serum or plasma chloride measurement (moles/volume) 104 mmol/L 98-107 Carbon dioxide 22 mmol/L 21-32 Serum or plasma anion gap determination (moles/volume) 12 mmol/L 5-14 Serum or plasma urea nitrogen measurement (mass/volume) 15 mg/dL 7-18 Serum or plasma creatinine measurement (mass/volume) 0.91 mg/dL 0.60-1.30 Serum or plasma urea nitrogen/creatinine mass ratio 16 NRG Serum or plasma creatinine measurement with calculation of estimated glomerular filtration rate > NRG Serum or plasma glucose measurement (mass/volume) 111 mg/dL 70-105 Serum or plasma calcium measurement (mass/volume) 10.0 mg/dL 8.5-10.1 Serum or plasma total bilirubin measurement (mass/volume) 0.8 mg/dL 0.1-1.0 Serum or plasma alkaline phosphatase measurement (enzymatic activity/volume) 89 U/L 40-136 Serum or plasma aspartate aminotransferase measurement (enzymatic activity/ volume) 20 U/L 5-34 Serum or plasma alanine aminotransferase measurement (enzymatic activity/volume ) 20 U/L 0-55 Serum or plasma protein measurement (mass/volume) 7.6 g/dL 6.4-8.2 Serum or plasma albumin measurement (mass/volume) 4.7 g/dL 3.2-4.5 Magnesium - 05/19/18 21:05 Magnesium 2.0 mg/dL 1.8-2.4 PT panel in platelet poor plasma by coagulation assay - 05/19/18 21:05 Prothrombin time (PT) in platelet poor plasma by coagulation assay 33.9 s 12.2-14.7 INR in platelet poor plasma or blood by coagulation assay 3.3 0.8-1.4 Activated partial thromboplastin time (aPTT) in platelet poor plasma bycoagulation assay - 05/19/18 21:05 Activated partial thromboplastin time (aPTT) in platelet poor plasma bycoagulation assay 51 s 24-35 Serum or plasma troponin i.cardiac measurement (mass/volume) - 05/19/18 21:05 Serum or plasma troponin i.cardiac measurement (mass/volume) < ng/ mL <0.30 Myoglobin, serum - 05/19/18 21:05 Myoglobin, serum 59.2 ng/mL 10.0-92.0 Bacterial blood culture - 05/19/18 21:05 Bacterial blood culture NG NRG Bacterial blood culture - 05/19/18 21:55 Bacterial blood culture NG NRG Complete urinalysis with reflex to culture - 05/19/18 22:18 Urine color determination YELLOW NRG Urine clarity determination CLEAR NRG Urine pH measurement by test strip 7 5-9 Specific gravity of urine by test strip 1.010 1.016- 1.022 Urine protein assay by test strip, semi-quantitative 2+ NEGATIVE Urine glucose detection by automated test strip NEGATIVE NEGATIVE Erythrocytes detection in urine sediment by light microscopy 2+ NEGATIVE Urine ketones detection by automated test strip NEGATIVE NEGATIVE Urine nitrite detection by test strip NEGATIVE NEGATIVE Urine total bilirubin detection by test strip NEGATIVE NEGATIVE Urine urobilinogen measurement by automated test strip (mass/volume) NORMAL NORMAL Urine leukocyte esterase detection by dipstick 1+ NEGATIVE Automated urine sediment erythrocyte count by microscopy (number/high power field) [HPF] NRG Automated urine sediment leukocyte count by microscopy (number/high power field ) [HPF] NRG Bacteria detection in urine sediment by light microscopy FEW NRG Crystals detection in urine sediment by light microscopy NONE NRG Casts detection in urine sediment by light microscopy NONE NRG Mucus detection in urine sediment by light microscopy NEGATIVE NRG Complete urinalysis with reflex to culture NO NRG Complete blood count (CBC) with automated white blood cell (WBC) differential - 05/20/18 06:10 Blood leukocytes automated count (number/volume) 19.2 10*3/uL 4.3-11.0 Blood erythrocytes automated count (number/volume) 4.13 10*6/uL 4.35-5.85 Venous blood hemoglobin measurement (mass/volume) 12.1 g/dL 13.3-17.7 Blood hematocrit (volume fraction) 36 % 40-54 Automated erythrocyte mean corpuscular volume 87 [foz_us] 80-99 Automated erythrocyte mean corpuscular hemoglobin (mass per erythrocyte) 29 pg 25-34 Automated erythrocyte mean corpuscular hemoglobin concentration measurement ( mass/volume) 34 g/dL 32-36 Automated erythrocyte distribution width ratio 14.3 % 10.0-14.5 Automated blood platelet count (count/volume) 178 10*3/uL 130-400 Automated blood platelet mean volume measurement 11.3 [foz_us] 7.4-10.4 Automated blood neutrophils/100 leukocytes 81 % 42-75 Automated blood lymphocytes/100 leukocytes 9 % 12-44 Blood monocytes/100 leukocytes 9 % 0-12 Automated blood eosinophils/100 leukocytes 1 % 0-10 Automated blood basophils/100 leukocytes 0 % 0-10 Blood neutrophils automated count (number/volume) 15.6 10*3 1.8-7.8 Blood lymphocytes automated count (number/volume) 1.8 10*3 1.0-4.0 Blood monocytes automated count (number/volume) 1.7 10*3 0.0-1.0 Automated eosinophil count 0.1 10*3/uL 0.0-0.3 Automated blood basophil count (count/volume) 0.0 10*3/uL 0.0-0.1 PT panel in platelet poor plasma by coagulation assay - 05/20/18 06:10 Prothrombin time (PT) in platelet poor plasma by coagulation assay 36.6 s 12.2-14.7 INR in platelet poor plasma or blood by coagulation assay 3.7 0.8-1.4 Whole blood basic metabolic panel - 05/20/18 06:10 Serum or plasma sodium measurement (moles/volume) 139 mmol/L 135-145 Serum or plasma potassium measurement (moles/volume) 3.9 mmol/L 3.6-5.0 Serum or plasma chloride measurement (moles/volume) 109 mmol/L 98-107 Carbon dioxide 23 mmol/L 21-32 Serum or plasma anion gap determination (moles/volume) 7 mmol/L 5-14 Serum or plasma urea nitrogen measurement (mass/volume) 16 mg/dL 7-18 Serum or plasma creatinine measurement (mass/volume) 0.89 mg/dL 0.60-1.30 Serum or plasma urea nitrogen/creatinine mass ratio 18 NRG Serum or plasma creatinine measurement with calculation of estimated glomerular filtration rate > NRG Serum or plasma glucose measurement (mass/volume) 105 mg/dL 70-105 Serum or plasma calcium measurement (mass/volume) 8.5 mg/dL 8.5-10.1 Lipid 1996 panel - 05/20/18 06:10 Serum or plasma triglyceride measurement (mass/volume) 123 mg/dL <150 Serum or plasma cholesterol measurement (mass/volume) 136 mg/dL < 200 Serum or plasma cholesterol in HDL measurement (mass/volume) 33 mg/ dL 40-60 Cholesterol in LDL [mass/volume] in serum or plasma by direct assay 86 mg/dL 1-129 Serum or plasma cholesterol in VLDL measurement (mass/volume) 25 mg/ dL 5-40 Complete blood count (CBC) with automated white blood cell (WBC) differential - 05/21/18 05:23 Blood leukocytes automated count (number/volume) 15.4 10*3/uL 4.3-11.0 Blood erythrocytes automated count (number/volume) 4.33 10*6/uL 4.35-5.85 Venous blood hemoglobin measurement (mass/volume) 12.4 g/dL 13.3-17.7 Blood hematocrit (volume fraction) 38 % 40-54 Automated erythrocyte mean corpuscular volume 87 [foz_us] 80-99 Automated erythrocyte mean corpuscular hemoglobin (mass per erythrocyte) 29 pg 25-34 Automated erythrocyte mean corpuscular hemoglobin concentration measurement ( mass/volume) 33 g/dL 32-36 Automated erythrocyte distribution width ratio 14.9 % 10.0-14.5 Automated blood platelet count (count/volume) 167 10*3/uL 130-400 Automated blood platelet mean volume measurement 11.8 [foz_us] 7.4-10.4 Automated blood neutrophils/100 leukocytes 79 % 42-75 Automated blood lymphocytes/100 leukocytes 9 % 12-44 Blood monocytes/100 leukocytes 10 % 0-12 Automated blood eosinophils/100 leukocytes 1 % 0-10 Automated blood basophils/100 leukocytes 0 % 0-10 Blood neutrophils automated count (number/volume) 12.1 10*3 1.8-7.8 Blood lymphocytes automated count (number/volume) 1.4 10*3 1.0-4.0 Blood monocytes automated count (number/volume) 1.6 10*3 0.0-1.0 Automated eosinophil count 0.2 10*3/uL 0.0-0.3 Automated blood basophil count (count/volume) 0.1 10*3/uL 0.0-0.1 Whole blood basic metabolic panel - 05/21/18 05:23 Serum or plasma sodium measurement (moles/volume) 139 mmol/L 135-145 Serum or plasma potassium measurement (moles/volume) 4.1 mmol/L 3.6-5.0 Serum or plasma chloride measurement (moles/volume) 111 mmol/L 98-107 Carbon dioxide 22 mmol/L 21-32 Serum or plasma anion gap determination (moles/volume) 6 mmol/L 5-14 Serum or plasma urea nitrogen measurement (mass/volume) 11 mg/dL 7-18 Serum or plasma creatinine measurement (mass/volume) 0.75 mg/dL 0.60-1.30 Serum or plasma urea nitrogen/creatinine mass ratio 15 NRG Serum or plasma creatinine measurement with calculation of estimated glomerular filtration rate > NRG Serum or plasma glucose measurement (mass/volume) 92 mg/dL 70-105 Serum or plasma calcium measurement (mass/volume) 9.3 mg/dL 8.5-10.1 Encounters ACCT No. Visit Date/Time Discharge Status Pt. Type Provider Facility Loc./Unit Complaint [id number] 08/25/2017 11:28:31 08/25/2017 23:59:59 CLS Outpatient Kylah Velasquez [id number] 03/25/2014 09:48:00 03/28/2014 17:15:00 DIS Inpatient [id number] 03/22/2017 12:34:00 03/22/2017 23:59:59 CLS Outpatient IRA LOPEZ DO [facility] CARD CHRONIC THROMBO [id number] 03/30/2016 14:41:00 03/30/2016 23:59:59 CLS Outpatient IRA LOPEZ DO [facility] CARD THROMBOEMBOLIC PULMONARY HTN [id number] 03/23/2016 14:12:00 03/23/2016 23:59:59 CLS Outpatient IRA LOPEZ DO [facility] CARD THROMBOEMBOLIC PULMONARY HTN [id number] 05/09/2014 09:56:00 08/07/2014 00:01:00 DIS Outpatient [id number] 06/06/2014 17:12:00 06/06/2014 23:59:59 CLS Outpatient IRA LOPEZ DO [facility] LABNPT DIAHREA [id number] 05/15/2014 14:00:00 05/15/2014 20:13:00 DIS Emergency AVNI CONRAD [facility] ER FEVER/SOA/NAUSEA [id number] 05/13/2014 16:30:00 05/13/2014 23:59:59 CLS Outpatient [id number] 03/12/2014 10:42:00 03/31/2014 00:01:00 DIS Outpatient [id number] 09/04/2013 13:35:00 12/03/2013 00:01:00 DIS Outpatient [id number] 07/10/2013 14:35:00 08/05/2013 00:01:00 DIS Outpatient [id number] 04/09/2013 15:02:00 04/22/2013 00:01:00 DIS Outpatient [id number] 05/19/2018 22:41:00 ACT Inpatient IRA LOPEZ DO [facility] 4TH SEPSIS;RUL PNEUMONIA;CHEST PAIN [id number] 08/08/2014 00:00:00 Document Registration
[2018-05-21 08:00] VITALS: BP 120/74
--- OUTSIDE RECORDS SUMMARY | 2018-05-21 08:45 | XMS REPORT | Clinical Summary ---
Author Author [facility] Organization [facility] Address Unknown Phone Unavailable Care Team Providers Care Oxygen Therapist Name Role Phone Timothy Sebastian MD Unavailable Cruzito Jackson MD Unavailable Bill Goodrich MD Unavailable Unavailable Angella Rodriguez APRN Unavailable Jasbir Cullen MD Unavailable Gianna Sales MD Unavailable Christopher Chavarria MD Unavailable Abbey Licona RN Unavailable Unavailable Tani Galdamez MD Unavailable Puma Camarillo ROLL SETTER Unavailable Mickie Campos MD Unavailable Aline Azar [...] in the Health Information Management department at [phone] for further assistance in locating additional records.[facility] Allergies Active Allergy Reactions Severity Noted [...] tablet daily. Active Problems Problem Noted Date shelter current use of anticoagulant 04/08/2016 Pulmonary hyperinflation [...]
--- OUTSIDE RECORDS SUMMARY | 2018-05-21 08:50 | XMS REPORT | Continuity of Care Document ---
Author Author [facility] Organization [facility] Address Unknown Phone Unavailable Allergies Active Description Code Type Severity Reaction Onset Reported/Identified Relationship to Patient Clinical Status Yes nitroglycerin [id number] Drug Allergy Moderate PULMONARY 05/15/2014 Medications There [...] Blood erythrocyte morphology finding identification [facility] Comprehensive metabolic panel - 05/19/18 21:05 Serum [...] Status Pt. Type Provider Facility Loc./Unit Complaint [id number] 08/25/2017 11:28:31 08/25/2017 23:59:59 CLS Outpatient Kylah Velasquez [id number] 03/25/2014 09:48:00 03/28/2014 17:15:00 DIS Inpatient [id number] 03/22/2017 12:34:00 03/22/2017 23:59:59 CLS Outpatient IRA LOPEZ DO [facility] CARD CHRONIC THROMBO [id number] 03/30/2016 14:41:00 03/30/2016 23:59:59 CLS Outpatient IRA LOPEZ DO [facility] CARD THROMBOEMBOLIC PULMONARY HTN [id number] 03/23/2016 14:12:00 03/23/2016 23:59:59 CLS Outpatient IRA LOPEZ DO [facility] CARD THROMBOEMBOLIC PULMONARY HTN [id number] 05/09/2014 09:56:00 08/07/2014 00:01:00 DIS Outpatient [id number] 06/06/2014 17:12:00 06/06/2014 23:59:59 CLS Outpatient IRA LOPEZ DO [facility] LABNPT DIAHREA [id number] 05/15/2014 14:00:00 05/15/2014 20:13:00 DIS Emergency AVNI CONRAD [facility] ER FEVER/SOA/NAUSEA [id number] 05/13/2014 16:30:00 05/13/2014 23:59:59 CLS Outpatient [id number] 03/12/2014 10:42:00 03/31/2014 00:01:00 DIS Outpatient [id number] 09/04/2013 13:35:00 12/03/2013 00:01:00 DIS Outpatient [id number] 07/10/2013 14:35:00 08/05/2013 00:01:00 DIS Outpatient [id number] 04/09/2013 15:02:00 04/22/2013 00:01:00 DIS Outpatient [id number] 05/19/2018 22:41:00 ACT Inpatient IRA LOPEZ DO [facility] 4TH SEPSIS;RUL PNEUMONIA;CHEST PAIN [id number] 08/08/2014 00:00:00 Document Registration
[2018-05-21] MEDS ORDERED: AMOX-358 PO (09:49)
--- NOTE | 2018-05-21 09:51 | Discharge Inst-Simple/Standard ---
Discharge Inst-Standard Discharge Medications New, Converted or Re-Newed RX: Transmitted to Pharmacy Patient Instructions/Follow Up Plan of Care/Instructions/FU: Please continue to take your medications as written. Please follow up with Dr Ta tomorrow. Activity as Tolerated: Yes Discharge Diet: Coumadin Patient Diet Return to The Hospital For: SOB, Cough, confusion, chest pain, worsensing fever, low blood pressure, if you feel you are getting worse. Planned Outpatient Orders/Ref. Pneu Vac Indicated: Yes MARTI MARKS MD May 21, 2018 9:51 am
[2018-05-21] MEDS: RT-ALBUTEROL/IPRATROPIUM 3 ML (DUONEB) VIAL INH SCH ×2 (10:25→19:22)
[2018-05-21 12:00] VITALS: BP 140/82
[2018-05-21 16:00] VITALS: BP 139/92
[2018-05-21 19:53] VITALS: BP 150/86
[2018-05-21] MEDS: diphenhydrAMINE 25 MG TAB (BENADRYL) PO SCH (20:12)
[2018-05-22 00:41] VITALS: BP 134/67
[2018-05-22] MEDS: PIPERACILLIN/TAZOBACTAM 3.375 GM in NS (IVPB) 100 ML IV SCH ×3 (03:54→20:46)
[2018-05-22 04:06] VITALS: BP 141/69
[2018-05-22 06:12] LABS: INR 1.3 (0.8-1.4); PROTHROMBIN TIME PATIENT 16.6 SEC (12.2-14.7)
[2018-05-22] MEDS: NS IV 1000 ML 1,000 ML IV SCH ×3 (06:31→20:45)
[2018-05-22 07:38] LABS: BASOPHILS # (AUTO) 0.1 10^3/uL (0.0-0.1); BASOPHILS % (AUTO) 0 % (0-10); EOSINOPHILS # (AUTO) 0.3 10^3/uL (0.0-0.3); EOSINOPHILS % (AUTO) 2 % (0-10); HEMATOCRIT 37 % (40-54); HEMOGLOBIN 12.5 G/DL (13.3-17.7); LYMPHOCYTES # (AUTO) 1.3 X 10^3 (1.0-4.0); LYMPHOCYTES % (AUTO) 10 % (12-44); MEAN CORPUSCULAR HEMOGLOBIN 30 PG (25-34); MEAN CORPUSCULAR HGB CONC 34 G/DL (32-36); MEAN CORPUSCULAR VOLUME 87 FL (80-99); MEAN PLATELET VOLUME 11.7 FL (7.4-10.4); MONOCYTES # (AUTO) 1.3 X 10^3 (0.0-1.0); MONOCYTES % (AUTO) 10 % (0-12); NEUTROPHILS # (AUTO) 9.7 X 10^3 (1.8-7.8); NEUTROPHILS % (AUTO) 77 % (42-75); PLATELET COUNT 191 10^3/uL (130-400); RED BLOOD COUNT 4.22 10^6/uL (4.35-5.85); RED CELL DISTRIBUTION WIDTH 14.6 % (10.0-14.5); WHITE BLOOD COUNT 12.6 10^3/uL (4.3-11.0)
--- NOTE | 2018-05-22 07:40 | Progress Note (SOAP) ---
Subjective Time Seen by Provider: 07:30 Subjective/Events-last exam Patient states he's feeling better. Pneumonia. Leukocytosis. Pulmonary embolism history. Consult cancer. Tracheostomy. Patient feels he is in the right direction Sepsis. Focused Exam Lactate Level 05/19/18 21:05: Lactic Acid Level 1.23 Objective Exam Vital Signs Date Time Temp Pulse Resp B/P (MAP) Pulse Ox O2 Delivery O2 Flow Rate FiO2 05/22/18 04:06 99.3 89 19 141/69 (93) 95 Room Air 05/22/18 01:00 87 05/22/18 00:41 99.2 84 18 134/67 (89) 95 Room Air 05/21/18 20:00 Room Air 05/21/18 19:53 99.3 92 20 150/86 (107) 95 Room Air 05/21/18 19:22 94 Room Air 05/21/18 19:00 84 05/21/18 16:00 99.8 79 18 139/92 (108) 96 Room Air 05/21/18 13:00 92 05/21/18 12:00 99.1 80 20 140/82 (101) 95 Room Air 05/21/18 10:26 94 Room Air 05/21/18 08:00 99.1 78 20 120/74 (89) 94 Room Air 05/21/18 07:48 Room Air I & O 05/22/18 07:00 Intake Total 6130 ml Output Total 6100 ml Balance 30 ml Capillary Refill : Less Than 3 SecondsLess Than 3 Seconds General Appearance: No Apparent Distress, WD/WN HEENT: Normal ENT Inspection Neck: Full Range of Motion, Normal Inspection Respiratory: No Accessory Muscle Use, No Respiratory Distress, Other (Loose congestion) Cardiovascular: Regular Rate, Rhythm Gastrointestinal: non tender, soft Results Lab Laboratory Tests 05/22/18 05:17: Prothrombin Time 16.6H, INR Comment 1.3 Microbiology 05/19/18 Blood Culture - Preliminary, Resulted No growth Assessment/Plan Assessment/Plan Assess & Plan/Chief Complaint Pneumonia. Sepsis. History of pulmonary embolism. Consult cancer history. History of tracheostomy. Patient still has some congestion in his chest Clinical Quality Measures AMI/AHF: ASA po Prior to arrival: No DVT/VTE Risk/Contraindication: Risk Factor Score Per Nursin RFS Level Per Nursing on Admit: 3=High Pneumonia: Pseudomonal Risk: Other (tracheostomy) IRA LOPEZ DO May 22, 2018 07:40
[2018-05-22 07:50] LABS: ALANINE AMINOTRANSFERASE 38 U/L (0-55); ALBUMIN 3.7 GM/DL (3.2-4.5); ALKALINE PHOSPHATASE 110 U/L (40-136); BILIRUBIN,TOTAL 0.8 MG/DL (0.1-1.0); BUN/CREATININE RATIO 12; CALCIUM 9.3 MG/DL (8.5-10.1); CARBON DIOXIDE 22 MMOL/L (21-32); CHLORIDE 108 MMOL/L (98-107); CREATININE SERUM 0.77 MG/DL (0.60-1.30); GFR ESTIMATED > 60; GLUCOSE 98 MG/DL (70-105); POTASSIUM 4.1 MMOL/L (3.6-5.0); SODIUM 139 MMOL/L (135-145); TOTAL PROTEIN 6.4 GM/DL (6.4-8.2)
[2018-05-22 08:00] VITALS: BP 131/79
[2018-05-22] MEDS: ENOXAPARIN 100 MG/1 ML (LOVENOX) SYR SC SCH ×2 (08:53→20:46)
--- NOTE | 2018-05-22 09:15 | Diagnostic Imaging Report ---
INDICATION: Right upper lobe pneumonia. TIME OF EXAMINATION: 9:24 AM. COMPARISON: 05/20/2018. FINDINGS: Changes of median sternotomy are noted. The infiltrate in the right upper lobe shows no real change. The remaining lung daley are clear. The pulmonary vascularity is normal. No effusion or pneumothorax is seen. IMPRESSION: Continued right upper lobe parenchymal density, similar to the examination of 2 days earlier. Dictated by: Dictated on workstation # [id number]
[2018-05-22] MEDS: RT-ALBUTEROL/IPRATROPIUM 3 ML (DUONEB) VIAL INH SCH ×2 (09:58→19:24)
[2018-05-22 12:00] VITALS: BP 145/89
[2018-05-22 15:35] VITALS: BP 158/81
[2018-05-22] MEDS: ACETAMINOPHEN 500 MG TAB (TYLENOL) PO PRN (16:30)
[2018-05-22] MEDS ORDERED: warFARin 10 MG (COUMADIN) TAB PO SCH (18:00)
[2018-05-22 19:15] VITALS: BP 126/73
[2018-05-22] MEDS: diphenhydrAMINE 25 MG TAB (BENADRYL) PO SCH (20:46)
[2018-05-22] MEDS ORDERED: LEVOTHYROXINE 150 MCG (LEVOTHROID) TAB PO SCH (21:00)
[2018-05-23 00:33] VITALS: BP 143/88
[2018-05-23] MEDS: NS IV 1000 ML 1,000 ML IV SCH ×2 (03:24→08:36)
[2018-05-23] MEDS: PIPERACILLIN/TAZOBACTAM 3.375 GM in NS (IVPB) 100 ML IV SCH (03:27)
[2018-05-23 04:11] VITALS: BP 169/92
[2018-05-23 06:20] LABS: BASOPHILS % (AUTO) 0 % (0-10); EOSINOPHILS # (AUTO) 0.3 10^3/uL (0.0-0.3); EOSINOPHILS % (AUTO) 3 % (0-10); HEMATOCRIT 38 % (40-54); HEMOGLOBIN 12.7 G/DL (13.3-17.7); LYMPHOCYTES # (AUTO) 1.1 X 10^3 (1.0-4.0); LYMPHOCYTES % (AUTO) 10 % (12-44); MEAN CORPUSCULAR HEMOGLOBIN 29 PG (25-34); MEAN CORPUSCULAR HGB CONC 33 G/DL (32-36); MEAN CORPUSCULAR VOLUME 86 FL (80-99); MEAN PLATELET VOLUME 11.1 FL (7.4-10.4); MONOCYTES # (AUTO) 1.3 X 10^3 (0.0-1.0); MONOCYTES % (AUTO) 12 % (0-12); NEUTROPHILS # (AUTO) 7.8 X 10^3 (1.8-7.8); NEUTROPHILS % (AUTO) 74 % (42-75); PLATELET COUNT 247 10^3/uL (130-400); RED BLOOD COUNT 4.44 10^6/uL (4.35-5.85); RED CELL DISTRIBUTION WIDTH 14.6 % (10.0-14.5); WHITE BLOOD COUNT 10.5 10^3/uL (4.3-11.0)
[2018-05-23 06:44] LABS: ALANINE AMINOTRANSFERASE 30 U/L (0-55); ALBUMIN 3.8 GM/DL (3.2-4.5); ALKALINE PHOSPHATASE 101 U/L (40-136); BILIRUBIN,TOTAL 0.6 MG/DL (0.1-1.0); BUN/CREATININE RATIO 10; CALCIUM 9.7 MG/DL (8.5-10.1); CARBON DIOXIDE 22 MMOL/L (21-32); CHLORIDE 110 MMOL/L (98-107); CREATININE SERUM 0.77 MG/DL (0.60-1.30); GFR ESTIMATED > 60; GLUCOSE 110 MG/DL (70-105); POTASSIUM 4.1 MMOL/L (3.6-5.0); SODIUM 141 MMOL/L (135-145); TOTAL PROTEIN 6.9 GM/DL (6.4-8.2)
[2018-05-23 07:33] LABS: INR 1.4 (0.8-1.4); PROTHROMBIN TIME PATIENT 16.7 SEC (12.2-14.7)
--- NOTE | 2018-05-23 07:54 | Progress Note (SOAP) ---
Subjective Time Seen by Provider: 07:50 Subjective/Events-last exam Patient feeling better today. Patient wants to go home. Chest x-ray still shows pneumonia. INR 1.4. Patient go home on Lovenox and Augmentin. Patient have a chest x-ray on Tuesday area Patient to be seen on Tuesday Objective Exam Vital Signs Date Time Temp Pulse Resp B/P (MAP) Pulse Ox O2 Delivery O2 Flow Rate FiO2 05/23/18 04:11 99.3 89 18 169/92 (117) 98 Room Air 05/23/18 01:00 89 05/23/18 00:33 98.7 91 18 143/88 (106) 93 Room Air 05/22/18 20:00 Room Air 05/22/18 19:25 97 Room Air 05/22/18 19:15 98.6 83 18 126/73 (90) 93 Room Air 05/22/18 19:00 83 05/22/18 17:21 99.8 05/22/18 16:30 100.0 05/22/18 15:35 99.2 75 18 158/81 (106) 96 Room Air 05/22/18 13:00 82 05/22/18 12:00 98.9 85 20 145/89 (107) 98 Room Air 05/22/18 09:58 94 Room Air 05/22/18 08:00 98.1 98 18 131/79 (96) 96 Room Air 05/22/18 08:00 94 Room Air I & O 05/23/18 07:00 Intake Total 6395 ml Output Total 5750 ml Balance 645 ml Capillary Refill : Less Than 3 SecondsLess Than 3 Seconds General Appearance: No Apparent Distress, WD/WN HEENT: Normal ENT Inspection Neck: Full Range of Motion Respiratory: Chest Non Tender, No Accessory Muscle Use, No Respiratory Distress Cardiovascular: Regular Rate, Rhythm, No Murmur Gastrointestinal: non tender, soft, other (Abdominal hernia) Results Lab Laboratory Tests 05/23/18 05:25 Laboratory Tests 05/23/18 05:23: Prothrombin Time 16.7H, INR Comment 1.4 05/23/18 05:25: White Blood Count 10.5, Red Blood Count 4.44, Hemoglobin 12.7L, Hematocrit 38L, Mean Corpuscular Volume 86, Mean Corpuscular Hemoglobin 29, Mean Corpuscular Hemoglobin Concent 33, Red Cell Distribution Width 14.6H, Platelet Count 247, Mean Platelet Volume 11.1H, Neutrophils (%) (Auto) 74, Lymphocytes (%) (Auto) 10L, Monocytes (%) (Auto) 12, Eosinophils (%) (Auto) 3, Basophils (%) (Auto) 0, Neutrophils # (Auto) 7.8, Lymphocytes # (Auto) 1.1, Monocytes # (Auto) 1.3H, Eosinophils # (Auto) 0.3, Basophils # (Auto) 0.0, Sodium Level 141, Potassium Level 4.1, Chloride Level 110H, Carbon Dioxide Level 22, Anion Gap 9, Blood Urea Nitrogen 8, Creatinine 0.77, Estimat Glomerular Filtration Rate > 60, BUN/ Creatinine Ratio 10, Glucose Level 110H, Calcium Level 9.7, Total Bilirubin 0.6 , Aspartate Amino Transf (AST/SGOT) 18, Alanine Aminotransferase (ALT/SGPT) 30, Alkaline Phosphatase 101, Total Protein 6.9, Albumin 3.8 Microbiology 05/19/18 Blood Culture - Preliminary, Resulted No growth Assessment/Plan Assessment/Plan Assess & Plan/Chief Complaint Pneumonia. Sepsis. History of pulmonary embolism. Consult cancer history. History of tracheostomy. Patient still has some congestion in his chest. . 05/23/18. Patient feeling good and wants to go home. Pneumonia. Sepsis. History of pulmonary embolism. History of cancer Clinical Quality Measures AMI/AHF: ASA po Prior to arrival: No DVT/VTE Risk/Contraindication: Risk Factor Score Per Nursin RFS Level Per Nursing on Admit: 3=High Pneumonia: Pseudomonal Risk: Other (tracheostomy) IRA LOPEZ DO May 23, 2018 07:54
[2018-05-23] MEDS ORDERED: AMOX-358 PO (08:01)
[2018-05-23] MEDS ORDERED: ENOX100D9 SQ (08:01)
[2018-05-23 08:30] VITALS: BP 135/89
[2018-05-23] MEDS: ENOXAPARIN 100 MG/1 ML (LOVENOX) SYR SC SCH (08:36)
[2018-05-23] MEDS: RT-ALBUTEROL/IPRATROPIUM 3 ML (DUONEB) VIAL INH SCH (09:55)
[2018-05-23] MEDS ORDERED: ATORVASTATIN 20 MG (LIPITOR) TABLET PO SCH (21:00)
--- NOTE | 2018-05-24 07:19 | Discharge Summary ---
Diagnosis/Chief Complaint Date of Admission May 19, 2018 at 22:41 Date of Discharge May 23, 2018 at 10:43 Discharge Date: May 23, 2018 Discharge Time: 07:15 Discharge Diagnosis Ammonia. Sepsis. Long-term use of anticoagulants. History of antineoplastic chemotherapy. History of irradiation. History of nicotine dependence. History of cancer of the tonsil. pulmonary hypertension Discharge Summary Discharge Physical Examination Allergies: Coded Allergies: nitroglycerin (Verified Adverse Reaction, Intermediate, PULMONARY, 05/15/14) Vitals & I&Os Vital Signs Date Time Temp Pulse Resp B/P (MAP) Pulse Ox O2 Delivery O2 Flow Rate FiO2 05/23/18 09:55 93 Room Air 05/23/18 08:30 98.6 94 20 135/89 (104) 05/20/18 00:52 21 Hospital Course Patient hospital improved. Patient felt much better. Chest x-ray shows right upper lobe pneumonia. Patient sent home on Coumadin. Patient given Lovenox till INR increased. Labs (last 24 hrs) Laboratory Tests 05/19/18 21:05: White Blood Count 18.7H, Red Blood Count 5.18, Hemoglobin 15.0, Hematocrit 44, Mean Corpuscular Volume 85, Mean Corpuscular Hemoglobin 29, Mean Corpuscular Hemoglobin Concent 34, Red Cell Distribution Width 14.5, Platelet Count 216, Mean Platelet Volume 10.9H, Neutrophils (%) (Auto) 85H, Lymphocytes (%) (Auto) 6L, Monocytes (%) (Auto) 8, Eosinophils (%) (Auto) 0, Basophils (%) (Auto) 0, Neutrophils # (Auto) 16.0H, Lymphocytes # (Auto) 1.1, Monocytes # (Auto) 1.6H, Eosinophils # (Auto) 0.0, Basophils # (Auto) 0.1, Neutrophils % (Manual) 82, Lymphocytes % (Manual) 1, Monocytes % (Manual) 14, Band Neutrophils 3, Blood Morphology Comment NORMAL, Prothrombin Time 33.9H, INR Comment 3.3H, Activated Partial Thromboplast Time 51H, Sodium Level 138, Potassium Level 4.0, Chloride Level 104, Carbon Dioxide Level 22, Anion Gap 12, Blood Urea Nitrogen 15, Creatinine 0.91, Estimat Glomerular Filtration Rate > 60, BUN/Creatinine Ratio 16, Glucose Level 111H, Lactic Acid Level 1.23, Calcium Level 10.0, Magnesium Level 2.0, Total Bilirubin 0.8, Aspartate Amino Transf (AST/SGOT) 20, Alanine Aminotransferase (ALT/SGPT) 20, Alkaline Phosphatase 89, Myoglobin 59.2, Troponin I < 0.30, Total Protein 7.6, Albumin 4.7H 05/19/18 22:18: Urine Color YELLOW, Urine Clarity CLEAR, Urine pH 7, Urine Specific Almond 1.010L, Urine Protein 2+H, Urine Glucose (UA) NEGATIVE, Urine Ketones NEGATIVE, Urine Nitrite NEGATIVE, Urine Bilirubin NEGATIVE, Urine Urobilinogen NORMAL, Urine Leukocyte Esterase 1+H, Urine RBC (Auto) 2+H, Urine RBC 2-5H, Urine WBC 0- 2, Urine Crystals NONE, Urine Bacteria FEWH, Urine Casts NONE, Urine Mucus NEGATIVE, Urine Culture Indicated NO 05/20/18 06:10: White Blood Count 19.2H, Red Blood Count 4.13L, Hemoglobin 12.1L, Hematocrit 36L , Mean Corpuscular Volume 87, Mean Corpuscular Hemoglobin 29, Mean Corpuscular Hemoglobin Concent 34, Red Cell Distribution Width 14.3, Platelet Count 178, Mean Platelet Volume 11.3H, Neutrophils (%) (Auto) 81H, Lymphocytes (%) (Auto) 9L, Monocytes (%) (Auto) 9, Eosinophils (%) (Auto) 1, Basophils (%) (Auto) 0, Neutrophils # (Auto) 15.6H, Lymphocytes # (Auto) 1.8, Monocytes # (Auto) 1.7H, Eosinophils # (Auto) 0.1, Basophils # (Auto) 0.0, Prothrombin Time 36.6H, INR Comment 3.7H, Sodium Level 139, Potassium Level 3.9, Chloride Level 109H, Carbon Dioxide Level 23, Anion Gap 7, Blood Urea Nitrogen 16, Creatinine 0.89, Estimat Glomerular Filtration Rate > 60, BUN/Creatinine Ratio 18, Glucose Level 105, Calcium Level 8.5, Triglycerides Level 123, Cholesterol Level 136, LDL Cholesterol Direct 86, VLDL Cholesterol 25, HDL Cholesterol 33L 05/21/18 05:23: White Blood Count 15.4H, Red Blood Count 4.33L, Hemoglobin 12.4L, Hematocrit 38L , Mean Corpuscular Volume 87, Mean Corpuscular Hemoglobin 29, Mean Corpuscular Hemoglobin Concent 33, Red Cell Distribution Width 14.9H, Platelet Count 167, Mean Platelet Volume 11.8H, Neutrophils (%) (Auto) 79H, Lymphocytes (%) (Auto) 9L, Monocytes (%) (Auto) 10, Eosinophils (%) (Auto) 1, Basophils (%) (Auto) 0, Neutrophils # (Auto) 12.1H, Lymphocytes # (Auto) 1.4, Monocytes # (Auto) 1.6H, Eosinophils # (Auto) 0.2, Basophils # (Auto) 0.1, Sodium Level 139, Potassium Level 4.1, Chloride Level 111H, Carbon Dioxide Level 22, Anion Gap 6, Blood Urea Nitrogen 11, Creatinine 0.75, Estimat Glomerular Filtration Rate > 60, BUN/ Creatinine Ratio 15, Glucose Level 92, Calcium Level 9.3 05/22/18 05:17: White Blood Count 12.6H, Red Blood Count 4.22L, Hemoglobin 12.5L, Hematocrit 37L , Mean Corpuscular Volume 87, Mean Corpuscular Hemoglobin 30, Mean Corpuscular Hemoglobin Concent 34, Red Cell Distribution Width 14.6H, Platelet Count 191, Mean Platelet Volume 11.7H, Neutrophils (%) (Auto) 77H, Lymphocytes (%) (Auto) 10L, Monocytes (%) (Auto) 10, Eosinophils (%) (Auto) 2, Basophils (%) (Auto) 0, Neutrophils # (Auto) 9.7H, Lymphocytes # (Auto) 1.3, Monocytes # (Auto) 1.3H, Eosinophils # (Auto) 0.3, Basophils # (Auto) 0.1, Prothrombin Time 16.6H, INR Comment 1.3, Sodium Level 139, Potassium Level 4.1, Chloride Level 108H, Carbon Dioxide Level 22, Anion Gap 9, Blood Urea Nitrogen 9, Creatinine 0.77, Estimat Glomerular Filtration Rate > 60, BUN/Creatinine Ratio 12, Glucose Level 98, Calcium Level 9.3, Total Bilirubin 0.8, Aspartate Amino Transf (AST/SGOT) 23, Alanine Aminotransferase (ALT/SGPT) 38, Alkaline Phosphatase 110, Total Protein 6.4, Albumin 3.7 05/23/18 05:23: Prothrombin Time 16.7H, INR Comment 1.4 05/23/18 05:25: White Blood Count 10.5, Red Blood Count 4.44, Hemoglobin 12.7L, Hematocrit 38L, Mean Corpuscular Volume 86, Mean Corpuscular Hemoglobin 29, Mean Corpuscular Hemoglobin Concent 33, Red Cell Distribution Width 14.6H, Platelet Count 247, Mean Platelet Volume 11.1H, Neutrophils (%) (Auto) 74, Lymphocytes (%) (Auto) 10L, Monocytes (%) (Auto) 12, Eosinophils (%) (Auto) 3, Basophils (%) (Auto) 0, Neutrophils # (Auto) 7.8, Lymphocytes # (Auto) 1.1, Monocytes # (Auto) 1.3H, Eosinophils # (Auto) 0.3, Basophils # (Auto) 0.0, Sodium Level 141, Potassium Level 4.1, Chloride Level 110H, Carbon Dioxide Level 22, Anion Gap 9, Blood Urea Nitrogen 8, Creatinine 0.77, Estimat Glomerular Filtration Rate > 60, BUN/ Creatinine Ratio 10, Glucose Level 110H, Calcium Level 9.7, Total Bilirubin 0.6 , Aspartate Amino Transf (AST/SGOT) 18, Alanine Aminotransferase (ALT/SGPT) 30, Alkaline Phosphatase 101, Total Protein 6.9, Albumin 3.8 Microbiology 05/19/18 Blood Culture - Preliminary, Resulted No growth Laboratory Tests 05/19/18 21:05 05/20/18 06:10 05/21/18 05:23 05/22/18 05:17 05/23/18 05:25 Pending Labs Microbiology Date/Time Source Procedure Growth Status 05/19/18 21:55 Peripheral Rt Ac Blood Culture - Preliminary No growth Resulted 05/19/18 21:05 Peripheral Lt Ac Blood Culture - Preliminary No growth Resulted Laboratory Tests 05/19/18 21:05: White Blood Count 18.7, Red Blood Count 5.18, Hemoglobin 15.0, Hematocrit 44, Mean Corpuscular Volume 85, Mean Corpuscular Hemoglobin 29, Mean Corpuscular Hemoglobin Concent 34, Red Cell Distribution Width 14.5, Platelet Count 216, Mean Platelet Volume 10.9, Neutrophils (%) (Auto) 85, Lymphocytes (%) (Auto) 6, Monocytes (%) (Auto) 8, Eosinophils (%) (Auto) 0, Basophils (%) (Auto) 0, Neutrophils # (Auto) 16.0, Lymphocytes # (Auto) 1.1, Monocytes # (Auto) 1.6, Eosinophils # (Auto) 0.0, Basophils # (Auto) 0.1, Neutrophils % (Manual) 82, Lymphocytes % (Manual) 1, Monocytes % (Manual) 14, Band Neutrophils 3, Blood Morphology Comment NORMAL, Prothrombin Time 33.9, INR Comment 3.3, Activated Partial Thromboplast Time 51, Sodium Level 138, Potassium Level 4.0, Chloride Level 104, Carbon Dioxide Level 22, Anion Gap 12, Blood Urea Nitrogen 15, Creatinine 0.91, Estimat Glomerular Filtration Rate > 60, BUN/Creatinine Ratio 16, Glucose Level 111, Lactic Acid Level 1.23, Calcium Level 10.0, Magnesium Level 2.0, Total Bilirubin 0.8, Aspartate Amino Transf (AST/SGOT) 20, Alanine Aminotransferase (ALT/SGPT) 20, Alkaline Phosphatase 89, Myoglobin 59.2, Troponin I < 0.30, Total Protein 7.6, Albumin 4.7 05/19/18 22:18: Urine Color YELLOW, Urine Clarity CLEAR, Urine pH 7, Urine Specific Almond 1.010, Urine Protein 2+, Urine Glucose (UA) NEGATIVE, Urine Ketones NEGATIVE, Urine Nitrite NEGATIVE, Urine Bilirubin NEGATIVE, Urine Urobilinogen NORMAL, Urine Leukocyte Esterase 1+, Urine RBC (Auto) 2+, Urine RBC 2-5, Urine WBC 0-2, Urine Crystals NONE, Urine Bacteria FEW, Urine Casts NONE, Urine Mucus NEGATIVE , Urine Culture Indicated NO 05/20/18 06:10: White Blood Count 19.2, Red Blood Count 4.13, Hemoglobin 12.1, Hematocrit 36, Mean Corpuscular Volume 87, Mean Corpuscular Hemoglobin 29, Mean Corpuscular Hemoglobin Concent 34, Red Cell Distribution Width 14.3, Platelet Count 178, Mean Platelet Volume 11.3, Neutrophils (%) (Auto) 81, Lymphocytes (%) (Auto) 9, Monocytes (%) (Auto) 9, Eosinophils (%) (Auto) 1, Basophils (%) (Auto) 0, Neutrophils # (Auto) 15.6, Lymphocytes # (Auto) 1.8, Monocytes # (Auto) 1.7, Eosinophils # (Auto) 0.1, Basophils # (Auto) 0.0, Prothrombin Time 36.6, INR Comment 3.7, Sodium Level 139, Potassium Level 3.9, Chloride Level 109, Carbon Dioxide Level 23, Anion Gap 7, Blood Urea Nitrogen 16, Creatinine 0.89, Estimat Glomerular Filtration Rate > 60, BUN/Creatinine Ratio 18, Glucose Level 105, Calcium Level 8.5, Triglycerides Level 123, Cholesterol Level 136, LDL Cholesterol Direct 86, VLDL Cholesterol 25, HDL Cholesterol 33 05/21/18 05:23: White Blood Count 15.4, Red Blood Count 4.33, Hemoglobin 12.4, Hematocrit 38, Mean Corpuscular Volume 87, Mean Corpuscular Hemoglobin 29, Mean Corpuscular Hemoglobin Concent 33, Red Cell Distribution Width 14.9, Platelet Count 167, Mean Platelet Volume 11.8, Neutrophils (%) (Auto) 79, Lymphocytes (%) (Auto) 9, Monocytes (%) (Auto) 10, Eosinophils (%) (Auto) 1, Basophils (%) (Auto) 0, Neutrophils # (Auto) 12.1, Lymphocytes # (Auto) 1.4, Monocytes # (Auto) 1.6, Eosinophils # (Auto) 0.2, Basophils # (Auto) 0.1, Sodium Level 139, Potassium Level 4.1, Chloride Level 111, Carbon Dioxide Level 22, Anion Gap 6, Blood Urea Nitrogen 11, Creatinine 0.75, Estimat Glomerular Filtration Rate > 60, BUN/ Creatinine Ratio 15, Glucose Level 92, Calcium Level 9.3 05/22/18 05:17: White Blood Count 12.6, Red Blood Count 4.22, Hemoglobin 12.5, Hematocrit 37, Mean Corpuscular Volume 87, Mean Corpuscular Hemoglobin 30, Mean Corpuscular Hemoglobin Concent 34, Red Cell Distribution Width 14.6, Platelet Count 191, Mean Platelet Volume 11.7, Neutrophils (%) (Auto) 77, Lymphocytes (%) (Auto) 10 , Monocytes (%) (Auto) 10, Eosinophils (%) (Auto) 2, Basophils (%) (Auto) 0, Neutrophils # (Auto) 9.7, Lymphocytes # (Auto) 1.3, Monocytes # (Auto) 1.3, Eosinophils # (Auto) 0.3, Basophils # (Auto) 0.1, Prothrombin Time 16.6, INR Comment 1.3, Sodium Level 139, Potassium Level 4.1, Chloride Level 108, Carbon Dioxide Level 22, Anion Gap 9, Blood Urea Nitrogen 9, Creatinine 0.77, Estimat Glomerular Filtration Rate > 60, BUN/Creatinine Ratio 12, Glucose Level 98, Calcium Level 9.3, Total Bilirubin 0.8, Aspartate Amino Transf (AST/SGOT) 23, Alanine Aminotransferase (ALT/SGPT) 38, Alkaline Phosphatase 110, Total Protein 6.4, Albumin 3.7 05/23/18 05:23: Prothrombin Time 16.7, INR Comment 1.4 05/23/18 05:25: White Blood Count 10.5, Red Blood Count 4.44, Hemoglobin 12.7, Hematocrit 38, Mean Corpuscular Volume 86, Mean Corpuscular Hemoglobin 29, Mean Corpuscular Hemoglobin Concent 33, Red Cell Distribution Width 14.6, Platelet Count 247, Mean Platelet Volume 11.1, Neutrophils (%) (Auto) 74, Lymphocytes (%) (Auto) 10 , Monocytes (%) (Auto) 12, Eosinophils (%) (Auto) 3, Basophils (%) (Auto) 0, Neutrophils # (Auto) 7.8, Lymphocytes # (Auto) 1.1, Monocytes # (Auto) 1.3, Eosinophils # (Auto) 0.3, Basophils # (Auto) 0.0, Sodium Level 141, Potassium Level 4.1, Chloride Level 110, Carbon Dioxide Level 22, Anion Gap 9, Blood Urea Nitrogen 8, Creatinine 0.77, Estimat Glomerular Filtration Rate > 60, BUN/ Creatinine Ratio 10, Glucose Level 110, Calcium Level 9.7, Total Bilirubin 0.6, Aspartate Amino Transf (AST/SGOT) 18, Alanine Aminotransferase (ALT/SGPT) 30, Alkaline Phosphatase 101, Total Protein 6.9, Albumin 3.8 Discussion & Recommendations Patient felt good and wanted to go home. Leukocytosis resolved. Elevated temperature resolved. Patient breathing much better. To get a chest x-ray this Tuesday. To monitor her INR Discharge Home Medications: Active Scripts Active Lovenox (Enoxaparin Sodium) 100 Mg/1 Ml Syringe 100 Mg SQ BID Augmentin 875-125 Tablet (Amoxicillin/Potassium Clav) 1 Each Tablet 1 Each PO BID Reported Atorvastatin Calcium 20 Mg Tablet 20 Mg PO HS Warfarin Sodium 6 Mg Tablet 10 Mg PO HS Diphenhydramine 25 Mg (Diphenhydramine HCl) 25 Mg Tablet 12.5-25 Mg PO HS Levothyroxine 100 Mcg Tab (Levothyroxine Sodium) 100 Mcg Tablet 150 Mcg PO HS Instructions to patient/family Please see electronic discharge instructions given to patient. Clinical Quality Measures AMI/AHF: ASA po Prior to arrival: No DVT/VTE Risk/Contraindication: Risk Factor Score Per Nursin RFS Level Per Nursing on Admit: 3=High Pneumonia: Pseudomonal Risk: Other (tracheostomy) IRA LOPEZ DO May 24, 2018 07:19
== END 2018-05-23 10:43 | disposition home or self-care (01) | DRG 871 ==
LOC: EDUNIT# 21:04 → ER 21:05 → 4TH 22:41
PROVIDERS: ADMIT Internal Medicine; ATTEND Family Medicine
DX: A41.9 Sepsis, unspecified organism (principal); J18.9 Pneumonia, unspecified organism; I27.20 Pulmonary hypertension, unspecified; E78.00 Pure hypercholesterolemia, unspecified; E89.0 Postprocedural hypothyroidism; E11.9 Type 2 diabetes mellitus without complications; Z85.818 Personal history of malignant neoplasm of other sites of lip, oral cavity, and pharynx; Z92.3 Personal history of irradiation; Z92.21 Personal history of antineoplastic chemotherapy; Z86.711 Personal history of pulmonary embolism; Z87.891 Personal history of nicotine dependence; Z79.01 Long term (current) use of anticoagulants
CPT/HCPCS: 36415; 71046; 80048; 80053; 80061; 81000; 83605; 83735; 83874; 84484; 85007; 85025; 85027; 85610; 85730; 87040; 93005; 93041; 94640; 94664; 94760; 96361; 96365; 96375

== ENCOUNTER 2018-05-27 09:20 | Outpatient (RCR) | payer BC ==
[2018-05-26 10:26] LABS: INR 1.6 (0.8-1.4)
--- NOTE | 2018-05-26 10:44 | Diagnostic Imaging Report ---
INDICATION: Pneumonia, followup. TECHNIQUE: Two view chest 10:40 AM CORRELATION STUDY: 05/22/2018 FINDINGS: Poststernotomy changes. Multiple clips throughout the mediastinum. Heart size, mediastinum, and vascular generally stable. Chronic type change about the lung parenchyma. More focal increased density of the right upper lung field laterally stable to slightly improved. May be minimal infiltrate-like density about the right lung base. Does produce slight asymmetric pleural thickening perhaps irregularity about the anterior second rib in the area of the lung parenchymal density. IMPRESSION: 1. Continued parenchymal density of the right upper lobe. Stable to perhaps very minimally improved. Continued short-term followup chest radiograph or CT imaging is recommended. Increased density suggested about the anterior second rib in this region. This may be owing to summation shadows, possibility of underlying rib pathology not excluded. Dictated by: Dictated on workstation # [id number]
[~2018-05-27 09:20] MED LIST changes: +AMOX-358 PO; +ATOR20TA66 PO; +ENOX100D9 SQ
[2018-05-27 10:13] LABS: INR 1.5 (0.8-1.4); PROTHROMBIN TIME PATIENT 18.4 SEC (12.2-14.7)
== END 2018-06-06 | disposition home or self-care (01) ==
LOC: RAD 09:20
PROVIDERS: ATTEND Family Medicine
DX: J18.9 Pneumonia, unspecified organism (principal); I26.99 Other pulmonary embolism without acute cor pulmonale
CPT/HCPCS: 36415; 71046; 85610

== ENCOUNTER → 2018-05-29 | Outpatient (CLI) | payer BC ==
[~2018-05-29] MED LIST changes: +CATHETER FLUSH 10 ML SYR IV PRN; +IOHEXOL 350 MG/ML 100 ML (OMNIPAQUE 350) VIAL IV ONE; +NS 100 ML (IVPB) BAG IV ONE
--- NOTE | 2018-05-29 11:34 | Diagnostic Imaging Report ---
INDICATION: Tonsil cancer. TECHNIQUE: Multiple contiguous axial images were obtained through the neck and chest after the uneventful bolus administration of intravenous contrast. FINDINGS: The visualized intracranial structures are unremarkable. The globes and intraorbital structures are unremarkable. The sinuses and mastoid air cells are clear. The nasopharyngeal soft tissues are symmetric and without mass effect. The oropharyngeal and hypopharyngeal tissues are also symmetrical without mass effect. The parotid glands and submandibular glands are unremarkable. The thyroid is unremarkable. The lung apices are clear. There has been a tracheostomy. The major vascular structures of the neck enhance in a normal fashion. There is no pathologically enlarged adenopathy or mass in the neck. There is a focal consolidation in the posterolateral aspect of the right upper lobe. There is a small round alveolar opacity in the superior segment of the right lower lobe. There is minimal scarring or atelectasis in the left lung base. There is no pleural or pericardial fluid. There is no pneumothorax. There is enlargement of the ascending aorta up to 5 cm. There is no evidence of dissection. The main pulmonary artery is normal in caliber. There is no pathologically enlarged adenopathy in the bilateral jatin. The visualized intra-abdominal structures are unremarkable. There are mild degenerative changes in the cervicothoracic spine. IMPRESSION: Focal right upper lobe consolidation is likely pneumonia although the possibility of an underlying neoplastic process cannot be entirely excluded. There is a smaller round alveolar appearing opacity in the right lower lobe. This is also likely infectious although the possibility of this being a mass cannot be excluded. Recommend short interval followup CT. Enlargement of the ascending aorta up to 5 cm. Mild coronary artery calcifications. Unremarkable CT neck apart from degenerative changes in the cervical spine. Dictated by: Dictated on workstation # [id number]
== END ==
LOC: RAD 08:49
PROVIDERS: ATTEND Family Medicine
DX: C09.9 Malignant neoplasm of tonsil, unspecified (principal); R91.8 Other nonspecific abnormal finding of lung field; I25.10 Atherosclerotic heart disease of native coronary artery without angina pectoris; M47.812 Spondylosis without myelopathy or radiculopathy, cervical region; I77.89 Other specified disorders of arteries and arterioles
CPT/HCPCS: 70491; 71260

== ENCOUNTER → 2018-06-05 | Outpatient (CLI) | payer BC ==
[~2018-06-05] MED LIST changes: -CATHETER FLUSH 10 ML SYR IV PRN; -IOHEXOL 350 MG/ML 100 ML (OMNIPAQUE 350) VIAL IV ONE; -NS 100 ML (IVPB) BAG IV ONE
[2018-06-05 10:11] LABS: HEMOGLOBIN 13.9 G/DL (13.3-17.7); MEAN PLATELET VOLUME 10.6 FL (7.4-10.4); RED BLOOD COUNT 4.79 10^6/uL (4.35-5.85); RED CELL DISTRIBUTION WIDTH 14.3 % (10.0-14.5); WHITE BLOOD COUNT 7.4 10^3/uL (4.3-11.0)
--- NOTE | 2018-06-05 10:24 | Diagnostic Imaging Report ---
INDICATION: Hemoptysis. TIME OF EXAM: 10:33 AM COMPARISON: Correlation is made with prior study from 05/26/2018. FINDINGS: Changes of median sternotomy and CABG are noted. The heart size is stable. Right upper lobe opacities show some improvement when compared with study 10 days earlier. There continues to be some mild density remaining however and continued followup is recommended. There is some minimal infiltrate in the lung bases. Mid lung daley are clear. There is no effusion or pneumothorax. There are changes of COPD. IMPRESSION: Overall mild improved appearance to the chest when compared with study 10 days earlier. There is some mild residual density right upper lobe and continued chest renographic followup is recommended to show complete clearing. Dictated by: Dictated on workstation # [id number]
== END ==
LOC: RAD 09:55
PROVIDERS: ATTEND Family Medicine
DX: R04.2 Hemoptysis (principal)
CPT/HCPCS: 36415; 71046; 85027

== ENCOUNTER 2020-03-31 01:26 | Emergency (ER) | payer BC ==
--- OUTSIDE RECORDS SUMMARY | 2020-03-31 01:37 | XMS REPORT ---
Author Author [employer] aws [facility] Address [address] [address] Care Team Providers Care Batch Operator Name Role Phone HEVER LOPEZ Unavailable ELVIRA FINCH Unavailable HEVER LOPEZ Unavailable HEVER LOPEZ DO Unavailable Unavailable [facility] PP Unavailable [facility] CCM Unavailable Unavailable Unavailable Unavailable Unavailable Allergies The data below is from unstructured sources Allergen Type Severity Reaction Last Updated No Known Drug Allergies 07/15/11 Substance Reaction Codes Entered Date Inactivated Date Status * NO KNOWN DRUG NETTA RGIES Unknown 04/13/2011 No Inactive Date Active Substance Reaction Codes Entered Date Inactivated Date Status * NO KNOWN DRUG NETTA RGIES Unknown 04/13/2011 No Inactive Date Active Medications Medication Ingredient Drug Dose Dates Status Sig Sig Care Class(es) (Normalized) (Original) Provid er amoxicillin amoxicillin Penicillin- 05-23-20 Complete take 10 Amoxicillin/ Ad 875 mg / / class 18 d tablets by Potassium d A clavulanate clavulanate Antibacteri mouth twice Clav Ge llen 125 mg oral al daily (Augmentin malena tablet (2 875-125 (no sources.) Tablet) 1 phone) Each Tablet 1 Each ORAL Twice A Day 10 Tab 05/23/18 05-21-2018 Completed no Amoxicil Marti - evelio sales/Sagrario Donis 05-23-2018 ation ssium (no Clav phone) (Augment in 875-125 Tablet) 1 Each Tablet, 1 Each Oral Twice A Day 05/21/18 Disconti nued atorvastati atorvastati HMG-CoA 20 mg Complete take 1 Atorvastat in (no n 20 mg n Reductase d tablet by Calcium 20 eva ne) oral tablet Inhibitor mouth at Mg Tablet 20 (1 source.) bedtime Mg ORAL Bedtime 1 ml enoxaparin Low 100 mg 05-23-20 Complete no Enoxapa rin Ad enoxaparin Molecular 18 d information Sodium d A sodium 100 Weight (Lovenox) Gellen mg/ml Heparin 100 Mg/1 Ml malena prefilled Syringe 100 (no syringe (1 Mg phone) source.) SUBCUTANEOUS Twice A Day 8 Syringe 05/23/18 100 mg 05-23-2018 Completed no Enoxapar Hever inform in A ation Sodium Gellende (Lovenox r (no ) 100 phone) Mg/1 Ml Syringe 100 Mg SUBCUTAN EOUS Twice A Day 8 Syringe 05/23/18 no Revation , no 20 mg 05-15-20 Complete no Revatio n , (no information 20 Mg information 14 d information 20 Mg phone) (1 source.) Intragastri Intragastric c Three Times A Day Discontinued no Warfarin , no 05-15-20 Complete no Warfarin , (no information Not information 14 d information Not phone) (1 source.) Applicable Applicable Discontinued Problems Active Problems Problem Normalized Date Last Normalized Normalized Provider Fa jeovany Classification Problem(s) Recorded Problem Problem Sta tus Duration Acute and Acute renal Episodic Active AVNI Not Availa ble unspecified failure KODY ECKERT (80606) renal failure syndrome (5 sources.) Translations: [ ACUTE RENAL FAILURE, UNSPECIFIED] NEGATED Atheroscleroti Chronic Active no name [facility] Via no c heart Mely information (2 disease of Hospital - sources.) ruby [place] coronary (12679) artery without angina pectoris Allergic Diarrhea Episodic Active HEVER Not Available reactions (2 GELVANNADER , DO (23480) sources.) Other Encounter for Episodic Active HEVER Not Avai lable aftercare (3 therapeutic GELTAMRA , DO (41394) sources.) drug monitoring Other H/O: pulmonary Episodic Active HEVER Via Chr isti circulatory embolus [facility] disease (1 [address] [place] source.) (73073) Other lower Hemoptysis Episodic Active no name no inform ation respiratory disease (2 sources.) Other lower Hypoxemia Episodic Active AVNI Not Availa ble respiratory KODY ECKERT (22834) disease (3 sources.) Unclassified INR raised Episodic Active HEVER Via Chri sti (8 sources.) Translations: [facility] [ PERSONAL [address] [place] HISTORY OF (22773) IRRADIATION, PERSONAL HISTORY OF ANTINEOPLASTIC CHEMO] NEGATED 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 Episodic Active no name [facility] Via no (current) use Mely information (7 of Hospital - sources.) anticoagulants [place] ([address]) Other Long-term Episodic Active HEVER Not Availabl e aftercare (3 (current) use GELLENDER , DO (02659) sources.) of anticoagulants NEGATED Malignant Chronic Active no name [facility] Via no neoplasm of Mely information (2 tonsil, Hospital - sources.) unspecified [place] ([address]41) NEGATED Other Episodic Active HEVER Not Available no nonspecific GELLENDER , DO (65543) information (2 abnormal sources.) finding of lung field Translations: [ OTHER NONSPECIFIC ABNORMAL FINDING OF MAE] NEGATED Other Episodic Active no name no informatio n no pulmonary information (5 embolism sources.) without acute cor pulmonale Pulmonary Other Chronic Active HEVER Not Available heart disease secondary GELLENDER , DO (51047) (4 sources.) pulmonary hypertension Pulmonary Other no information Active HEVER Not Avai lable heart disease secondary GELLENDER , DO (75807) (2 sources.) pulmonary hypertension Translations: [ OTHER PULMONARY EMBOLISM WITHOUT ACUTE C] NEGATED Other Chronic Active no name [facility] Via no specified Mely information (2 disorders of Hospital - sources.) arteries and [place] arterioles (94203) NEGATED Personal Episodic Active no name [facility] Via no history of Mely information (7 malignant Hospital - sources.) neoplasm of [place] other sites of (39816) lip, oral cavity, and pharynx NEGATED Personal Episodic Active no name [facility] Via no history of Mely information (7 nicotine Hospital - sources.) dependence [place] (98596) NEGATED Personal Episodic Active no name [facility] Via no history of Mely information (7 pulmonary Hospital - sources.) embolism [place] (54255) NEGATED Pneumonia, Episodic Active no name [facility] Via no unspecified Mely information organism Hospital - (12 sources.) [place] (61763) NEGATED Spondylosis Chronic Active no name [facility] Via no without Mely information (2 myelopathy or Hospital - sources.) radiculopathy, [place] cervical (59574) region NEGATED Type 2 Chronic Active no name [facility] Via no diabetes Mely information (7 mellitus Hospital - sources.) without [place] complications (08723) Past or Other Problems Problem Normalized Date Last Normalized Normalized Provider Fa cility Classification Problem(s) Recorded Problem Problem Sta tus Duration Other lower Other Episodic Completed AVNI Not Availab le respiratory nonspecific KODY ECKERT (49335) disease (2 abnormal sources.) finding of lung field Pneumonia (2 Pneumonia no information no information HEVER Via [facility] sources.) [facility] [address] [place] ([address]) NEGATED Pulmonary no information no information no name [facility] Via no hypertension, [facility] information (7 unspecified Hospital - sources.) [place] (31285) NEGATED Pure no information no information no name [facility] Via no hypercholester [facility] information (7 olemia, Hospital - sources.) unspecified [place] (27199) NEGATED Sepsis, no information no information no name [facility] Via no unspecified [facility] information (7 organism Hospital - sources.) Translations: [place] [ SEVERE (91436) SEPSIS WITHOUT SEPTIC SHOCK] Procedures Procedure Normalized Procedure Procedure Result Performer Facility Date 05-22-2018 Diagnostic radiography no information HEVER BARBOZA Via [facility] ([address]) posteroanterior and lateral 05-20-2018 Diagnostic radiography no information MARTI Hoff Via [facility] ([address]) posteroanterior and lateral 05-19-2018 Diagnostic radiography no information FELI MIXON Via [facility] (56314) posteroanterior and lateral 05-19-2018 Electrocardiographic no information FELI DRAKE Via [facility] procedure [place] ([address]) Immunizations Normalized Immunization Date Notes Care Provider Facili ty Immunization influenza, seasonal, 11-14-2014 no information no name No t Available injectable, (69250) preservative free pneumococcal 04-26-2014 no information no name Not Availa ble polysaccharide (98613) vaccine, 23 valent vaccine no information HEVER LOPEZ Via [facility] Translations: [ [address] [place] ([address]78) vaccine] Results Test Name Value Interpretation Reference Range Date Time Fa cility (Normalized) (Normalized) (Medline Reference) venous blood hemoglobin measurement (mass/volume) on 2018-05-23 Hemoglobin (HGB) 12.7 g/dL (L) 12.1 - 17.2 g/dL Via [facility] (55647) serum or plasma urea nitrogen/creatin ine mass ratio on 2018-05-23 BUN/Creatinine 10 mg/mg (no code) 6 - 22 mg/mg Via [facility] (76366) serum or plasma urea nitrogen measurement (mass/volume) on 2018-05-23 Urea nitrogen 8 mg/dL (no code) 7 - 20 mg/dL Via [facility] (60996) serum or plasma total bilirubin measurement (mass/volume) on 2018-05-23 Bilirubin 0.6 mg/dL (no code) 0.1 - 1.2 mg/dL Via [facility] (total) [facility] (77874) serum or plasma sodium measurement (moles/volume) on 2018-05-23 Sodium 141 mmol/L (no code) 135 - 145 mmol/L Via [facility] (53016) serum or plasma protein measurement (mass/volume) on 2018-05-23 Protein 6.9 g/dL (no code) 6.4 - 8.3 g/dL Via [facility] (64429) serum or plasma potassium measurement (moles/volume) on 2018-05-23 Potassium 4.1 mmol/L (no code) 3.7 - 5.2 mmol/L Via [facility] (01034) serum or plasma glucose measurement (mass/volume) on 2018-05-23 Glucose 110 mg/dL (H) 60 - 125 mg/dL Via [facility] (80625) serum or plasma creatinine measurement with calculation of estimated glomerular filtration rate on 2018-05-23 eGFR (non-black) no information (no code) Via [facility] (11968) serum or plasma creatinine measurement (mass/volume) on 2018-05-23 Creatinine 0.77 mg/dL (no code) Via [facility] (51923) serum or plasma chloride measurement (moles/volume) on 2018-05-23 Chloride 110 mmol/L (H) 95 - 106 mmol/L Via [facility] (58132) serum or plasma calcium measurement (mass/volume) on 2018-05-23 Calcium 9.7 mg/dL (no code) 8.5 - 10.2 mg/dL Via [facility] (69175) serum or plasma aspartate aminotransferase measurement (enzymatic activity/volume) on 2018-05-23 Aspartate 18 U/L (no code) 10 - 34 U/L Via [facility] aminotransferase [facility] (AST) [place] ([address]80) serum or plasma anion gap determination (moles/volume) on 2018-05-23 Anion gap 9 mmol/L (no code) 3 - 11 mmol/L Via [facility] (09102) serum or plasma alkaline phosphatase measurement (enzymatic activity/volume) on 2018-05-23 Alkaline 101 U/L (no code) 44 - 147 U/L Via [facility] phosphatase [facility] (ALP) [place] ([address]92) serum or plasma albumin measurement (mass/volume) on 2018-05-23 Albumin 3.8 g/dL (no code) 3.4 - 5.4 g/dL Via [facility] (08075) serum or plasma alanine aminotransferase measurement (enzymatic activity/volume) on 2018-05-23 Alanine 30 U/L (no code) 4 - 40 U/L Via [facility] aminotransferase [facility] (ALT) [place] ([address]) prothrombin time (pt) in platelet poor plasma by coagulation assay on 2018-05-23 Coagulation 16.7 s (H) Via [facility] tissue factor [facility] induced in [place] platelet poor (77946) plasma inr in platelet poor plasma or blood by coagulation assay on 2018-05-23 INR in blood by 1.4 {INR} (no code) 0.8 - 1.1 {INR} Via [facility] coagulation [facility] (45659) carbon dioxide on 2018-05-23 CO2 22 mmol/L (no code) 23 - 29 mmol/L Via [facility] (13649) blood neutrophils automated count (number/volume) on 2018-05-23 Neutrophils 7.8 10*3/uL (no code) 1.7 - 7 10*3/uL Via [facility] (92770) blood monocytes/100 leukocytes on 2018-05-23 Monocytes/100 12 % (no code) 2 - 8 % Via [facility] leukocytes [facility] (95147) blood monocytes automated count (number/volume) on 2018-05-23 Monocytes 1.3 10*3/uL (H) 0.3 - 0.9 Via [facility] 10*3/uL [facility] (67693) blood lymphocytes automated count (number/volume) on 2018-05-23 Lymphocytes 1.1 10*3/uL (no code) 0.9 - 2.9 Via [facility] 10*3/uL [facility] (95200) blood leukocytes automated count (number/volume) on 2018-05-23 WBC (Leukocytes) 10.5 10*3/uL (no code) 3.5 - 10.5 Via Chri st[facility] 10*3/uL [facility] (87881) blood hematocrit (volume fraction) on 2018-05-23 Hematocrit (HCT) 38 % (L) 36.1 - 50.3 % Via [facility] (18927) blood erythrocytes automated count (number/volume) on 2018-05-23 Erythrocytes 4.44 10*6/uL (no code) 4.2 - 6.1 Via [facility] (RBC) 10*6/[facility] (76801) automated erythrocyte mean corpuscular volume on 2018-05-23 MCV 86 fL (no code) 80 - 100 fL Via [facility] (71194) automated erythrocyte mean corpuscular hemoglobin concentration measurement (mass/volume) on 2018-05-23 MCHC 33 g/dL (no code) 32 - 36 g/dL Via [facility] (75394) automated erythrocyte mean corpuscular hemoglobin (mass per erythrocyte) on 2018-05-23 MCH 29 pg (no code) 27 - 31 pg Via [facility] (46849) automated erythrocyte distribution width ratio on 2018-05-23 RDW-CA 14.6 % (H) 11.6 - 14.6 % Via [facility] (41288) automated eosinophil count on 2018-05-23 Eosinophils 0.3 10*3/uL (no code) 0.05 - 0.5 Via [facility] 10*3/[facility] (03859) automated blood platelet mean volume measurement on 2018-05-23 Platelet mean 11.1 fL (H) 7.2 - 11.7 fL Via [facility] (V) [facility] (54254) automated blood platelet count (count/volume) on 2018-05-23 Platelets 247 10*3/uL (no code) 150 - 450 Via [facility] 10*3/uL [facility] (71188) automated blood neutrophils/100 leukocytes on 2018-05-23 Neutrophils/100 74 % (no code) 40 - 60 % Via [facility] leukocytes [facility] (25560) automated blood lymphocytes/100 leukocytes on 2018-05-23 Lymphocytes/100 10 % (L) 20 - 40 % Via [facility] (16338) automated blood eosinophils/100 leukocytes on 2018-05-23 Eosinophils/100 3 % (no code) 1 - 4 % Via [facility] (56601) automated blood basophils/100 leukocytes on 2018-05-23 Basophils/100 0 % (no code) 0.5 - 1 % Via [facility] (53723) automated blood basophil count (count/volume) on 2018-05-23 Basophils 0.0 10*3/uL (no code) 0 - 0.3 10*3/uL Via [facility] (29534) serum or plasma triglyceride measurement (mass/volume) on 2018-05-20 Triglyceride 123 mg/dL (no code) 0 - 150 mg/dL Via [facility] (86221) serum or plasma cholesterol measurement (mass/volume) on 2018-05-20 Cholesterol 136 mg/dL (no code) 180 - 200 mg/dL Via [facility] (79480) serum or plasma cholesterol in vldl measurement (mass/volume) on 2018-05-20 Serum or plasma 25 (no code) Via [facility] VLDL measurement [place] (mass/volume) (17600) serum or plasma cholesterol in hdl measurement (mass/volume) on 2018-05-20 HDL Cholesterol 33 mg/dL (L) Via [facility] (51999) cholesterol in ldl [mass/volume] in serum or plasma by direct assay on 2018-05-20 LDL Cholesterol 86 mg/dL (no code) 0 - 100 mg/dL Via [facility] (58468) urine urobilinogen measurement by automated test strip (mass/volume) on 2018-05-19 Urine, NORMAL (no code) [facility]28987[facility] urine total bilirubin detection by test strip on 2018-05-19 Urine, bilirubin Negative (no code) Via [facility] (18157) urine protein assay by test strip, semi-quantitativ e on 2018-05-19 Urine, protein 2+ (*) Via [facility] (39925) urine ph measurement by test strip on 2018-05-19 Urine, pH 7 [pH] (no code) 4.6 - 8 [pH] Via [facility] (70053) urine nitrite detection by test strip on 2018-05-19 Urine, nitrite Negative (no code) Via [facility] (70644) urine ketones detection by automated test strip on 2018-05-19 Urine, ketones Negative (no code) Via [facility] (38781) urine glucose detection by automated test strip on 2018-05-19 Urine, glucose Negative (no code) Via [facility] (09170) urine color determination on 2018-05-19 Urine, color YELLOW (no code) Via [facility] (77680) urine clarity determination on 2018-05-19 Urine, clarity CLEAR (no code) Via [facility] (91650) specific gravity of urine by test strip on 2018-05-19 Urine, specific 1.010 (*) Via [facility] gravity [facility] (70920) serum or plasma troponin i.cardiac measurement (mass/volume) on 2018-05-19 Troponin I no information (no code) Via [facility] (18468) myoglobin, serum on 2018-05-19 Myoglobin 59.2 ng/mL (no code) Via [facility] (69243) mucus detection in urine sediment by light microscopy on 2018-05-19 Urine, mucus Negative (no code) Via [facility] in [facility] sediment [place] (93816) manual blood segmented neutrophils/100 leukocytes on 2018-05-19 Segmented 82 % (no code) 35 - 80 % Via [facility] Neutrophils/100 Hospital leukocytes [place] (28185) manual blood lymphocytes/100 leukocytes on 2018-05-19 Lymphocytes/100 1 % (no code) 20 - 40 % Via [facility] leukocytes [facility] (48336) magnesium on 2018-05-19 Magnesium 2.0 mg/dL (no code) 1.7 - 2.2 mg/dL Via [facility] (34194) leukocyte esterase on 2018-05-19 Urine, leukocyte 1+ (*) Via [facility] esterase [facility] (78853) erythrocytes detection in urine sediment by light microscopy on 2018-05-19 Urine, 2+ (*) Via [facility] erythrocytes [facility] (72524) crystals detection in urine sediment by light microscopy on 2018-05-19 Urine, crystals NONE (no code) Via [facility] presence in Hospital sediment [place] (94837) complete urinalysis with reflex to culture on 2018-05-19 Complete NO (no code) Via [facility] urinalysis with Hospital reflex to [place] culture (01632) casts detection in urine sediment by light microscopy on 2018-05-19 Urine, casts in NONE (no code) Via [facility] sediment [facility] (57780) blood monocytes/100 leukocytes on 2018-05-19 Monocytes/100 14 % (no code) 2 - 8 % Via [facility] leukocytes [facility] (53056) blood lactic acid measurement (moles/volume) on 2018-05-19 Lactate 1.23 mmol/L (no code) 0.5 - 2.2 mmol/L Via [facility] sti [facility] (70604) blood erythrocyte morphology finding identification on 2018-05-19 Erythrocyte NORMAL (no code) Via [facility] morphology [facility] (64395) blood band neutrophils/100 leukocytes on 2018-05-19 Neutrophils 3 % (no code) 0 - 3 % Via [facility] band/100 Hospital leukocytes [place] (31922) bacterial blood culture on 2018-05-19 Bacteria culture No growth (no code) Via [facility] (38746) bacteria detection in urine sediment by light microscopy on 2018-05-19 Urine, bacteria FEW (*) Via [facility] in [facility] (54693) automated urine sediment leukocyte count by microscopy (number/high power field) on 2018-05-19 Urine, no information (no code) Via [facility] leukocytes in [facility] (48687[facility] automated urine sediment erythrocyte count by microscopy (number/high power field) on 2018-05-19 Urine, no information (*) Via [facility] erythrocytes in Hospital sediment by [facility] (64060) activated partial thromboplastin time (aptt) in platelet poor plasma bycoagulation assay on 2018-05-19 aPTT 51 s (H) 25 - 35 s Via [facility] (36691) Vital Signs The data below is from unstructured sources Vital Response Date/Time Temperature (Fahrenheit) 98.7 degree s F (97.6 - 99.5) Temperature (Calculated Celsius) 37. 46089 degrees C (36.4 - 37.5) Temperature Source Temporal Pulse Rate (adult) 95 bpm (60 - 90) Respiratory Rate 18 bpm (12 - 24) O2 Sat by Pulse Oximetry 95 % (88 - 100) Blood Pressure 95/53 mm Hg Pain Pain Intensity 3 Height (Feet) 6 feet Height (Inches) 2 inches Height (Calculated Centimeters) 187. 699481 cm Weight (Pounds) 205 pounds Weight (Calculated Kilograms) 92.986 437 kilograms Calculated BMI 26.32 Vital Response Date/Time Temperature (Fahrenheit) 98.6 degree s F (97.6 - 99.5) 05/23/2018 8:30am Temperature (Calculated Celsius) 37. 66942 degrees C (36.4 - 37.5) 05/23/2018 8:30am Temperature Source Temporal 05/23/2018 8:30am Pulse Rate (adult) 94 bpm (60 - 90) 05/23/2018 8:30am Respiratory Rate 20 bpm (12 - 24) 05/23/2018 8:30am O2 Sat by Pulse Oximetry 93 % (88 - 100) 05/23/2018 9:55am Blood Pressure 135/89 mm Hg 05/23/2018 8:30am Blood Pressure Mean 104 mm Hg (65 - 110) 05/23/2018 8:30am Pain Numeric Pain Scale 0-No Pain 05/23/2018 8:30am Height (Feet) 6 feet 12:00am Height (Inches) 2.00 inches 05/20/2018 12:00am Height (Calculated Centimeters) 187. 137913 cm 05/20/2018 12:00am Height Method Stated 9:10pm Weight (Pounds) 234 pounds 05/20/2018 12:00am Weight (Ounces) 2.0 oz 0 05/20/2018 12:00am Weight (Calculated Grams) 337992.32 gm 05/20/2018 12:00am Weight (Calculated Kilograms) 106.19 7315 kilograms 05/20/2018 12:00am Calculated BMI 30.1 05/07 12:00am Weight Method Stated 9:10pm Weight Measurement Method Built in [facility] e 05/20/2018 12:00am Capillary Refill Capillary Refill Less Than 3 Seconds 05/22/2018 8:00pm Interventions No Information Plan of Treatment The data below is from unstructured sources Discharge Date 05/23/18 10:43am Disposition 01 HOME, SELF-CARE Instructions/Education Provided Santana laura in Adults Sepsis, Adult (DC) Prescriptions See Medication Section Follow-up Orders PT/INR-Series Order Date: Series Order Entered Date: 05/23/2018 7:58am Chest Pa/Lat (2 View Order Date: 05/26/2018 Entered Date: 05/23/2018 7:59am Referrals HEVER LOPEZ DO (Un specified) Order Date: Tomorrow Entered Date: 05/21/2018 9:50am Address: [address] [place] [id number] [phone] Reason(s) for Referral: Pneumonia of right upper lobe due to infectious organism Additional Instructions/Education PT /INR daily Chest x-ray on Saturday 05/26 at 8am Follow up with Dr. Lopez on Saturday 05/26 at 11:00 Goals No Information Social History The data below is from unstructured sources History Response Recorde d Date/Time Hx Family Cancer Y prostrate - father 02/14/13 9:20pm Hx Family Lung Cancer Y & brain ca - mothe r 02/14/13 9:20pm Hx Family Cardiac Disorders N 02/14/13 9:20pm History Response Recorde d Date/Time Alcohol Use Past History 02/14/13 9:20pm Recreational Drug Use N 02/14/13 9:20pm Recent Foreign Travel N 02/14/13 9:20pm Recent Infectious Disease Exposure N 02/14/13 9:20pm Hospitalization with Isolation Denies 02/14/13 9:20pm Sexually Transmitted Disease N 02/14/13 9:20pm HIV/AIDS N 02/14/13 9:20 pm History Response Recorde d Date/Time Hx Family Cancer Y prostrate - father 02/14/13 9:20pm Hx Family Lung Cancer Y & brain ca - mothe r 02/14/13 9:20pm History Response Recorde d Date/Time Alcohol Use Past History 02/14/13 9:20pm Recreational Drug Use N 02/14/13 9:20pm Recent Foreign Travel N 02/14/13 9:20pm Recent Infectious Disease Exposure N 02/14/13 9:20pm Hospitalization with Isolation Denies 02/14/13 9:20pm Functional Status The data below is from unstructured sources Query Response Date John Paul rded Comprehension Ability Understands Co ncepts May 22, 2018 8:00pm No Functional Status data Mental Status No Information Encounters Encounter Normalized Encounter Encounter Diagnosis Care Provi malena Organization Date Type 05-19-2018 Emergency department no information no name no organization name patient visit 05-19-2018 Evaluation and Sepsis [facility] no organization name - management of Work Phone: 05-23-2018 inpatient 08-07-2018 Patient encounter no information no name no or ganization name 06-05-2018 Patient encounter no information no name no or ganization name NEGATED Patient encounter no information no name no or ganization name 05-29-2018 NEGATED Patient encounter no information no name no or ganization name 05-27-2018 - 06-06-2018 05-26-2018 Patient encounter no information no name no or ganization name 05-19-2018 Patient encounter no information no name no or ganization name - 05-23-2018 03-30-2016 Patient encounter no information no name no or ganization name 03-23-2016 Patient encounter no information no name no or ganization name 08-08-2014 Patient encounter no information no name no or ganization name 06-06-2014 Patient encounter no information no name no or ganization name Patient encounter no information no name no organizat ion name 03-22-2017 Patient encounter no information no name no or ganization name procedure Medical Equipment No Information Payers Normalized Payer Value NEGATED [id number] [facility] [id number] ([id number]) Advance Directives No Advance Directive data Directive Response Recor ded Date/Time Advance Directives No 2:13pm Health Care Power of Director Television [employer] No 05/15/14 2:13pm Organ Donor Yes 05/15/14 2:13pm Resuscitation Status Full Code 05/15/14 2:13pm Directive Response Recor ded Date Advance Directives N 08/19 9:20pm Health Care Power of Director Television [employer] N 02/14/13 9:20pm Organ Donor Y 02/14/13 9 :20pm Directive Response Recor ded Date/Time Advance Directives No 2:13pm Health Care Power of Director [employer] No 05/15/14 2:13pm Organ Donor Yes 05/15/14 2:13pm Directive Response Recor ded Date/Time Advance Directives No 12:00am Health Care Power of Director Television [employer] No 05/20/18 12:00am Organ Donor Yes 05/20/18 12:00am Resuscitation Status Full Code 05/20/18 12:00am Directive Response Recor ded Date/Time Advance Directives No 12:00am Health Care Power of Director [employer] No 05/20/18 12:00am Organ Donor Yes 05/20/18 12:00am Discharge Instructions No hospital discharge instructions.No hospital discharge instructions.No hospital discharge instruction information available.No hospital discharge instruction information available. Summary Purpose Interface Exchange Family History Diagnosis Age At Onset No Family Disease Entered N/A Diagnosis Age At Onset Prostate Cancer Unknown Diagnosis Age At Onset *Denies any medical problems Unknown Assessments Condition Codes Effectiv e Dates HYPOTHYROIDISM ICD-9: 244.9 01/11/2013 Hoarseness ICD-9: 784.42 01/11/2013 DYSPHAGIA NEC ICD-9: 787.29 01/11/2013 DYSPNEA ICD-9: 786.09 Shingles ICD-9: 053.9 Cellulitis ICD-9: 682.9 07/21/2011 LYMPHADENOPATHY ICD-9: 785.6 06/02/2011 HYPERTENSION ICD-9: 401.9 05/04/2011 HYPOGLYCEMIA NEC ICD-9: 251.1 05/04/2011 PHARYNGITIS, ACUTE ICD-9: 462 04/13/2011 Chief Complaint Reason For Visit Effective Dates Notes follow up 01/11/2013 Sto pped metformin rash 07/22/2011 rash 07/21/2011 follow up 06/02/2011 5wk fwup follow up 05/04/2011 2wk fwup follow up 04/20/2011 dis cuss labs sore throat 04/13/2011 Review of System System Result Effective Dates Gastrointestinal dysphagia 01/11/2013 Respiratory orthopnea Genitourinary/Nephrology No dysuria 01/11/2013 Genitourinary/Nephrology No nocturia 01/11/2013 Genitourinary/Nephrology No urinary incontinence 01/11/2013 Musculoskeletal No muscle weakness 01/11/2013 Musculoskeletal No myalgias 01/11/2013 Musculoskeletal No stiffness 01/11/2013 Musculoskeletal No swelling 01/11/2013 Neurologic No dizziness 01/11/2013 Neurologic No headache 0 01/11/2013 Neurologic No neck pain 01/11/2013 Neurologic No syncope Dermatologic No rash 05/2013 Dermatologic No scar 05/2013 Psychiatric No anxiety 0 01/11/2013 Psychiatric No depression 01/11/2013 Endocrine No goiter 05/2013 Endocrine No hyperglycemia 01/11/2013 Endocrine No hypoglycemia 01/11/2013 Endocrine hypothyroid Cardiovascular No arrhythmia 01/11/2013 Cardiovascular No chest pain/pressure 01/11/2013 Cardiovascular No edema 01/11/2013 Cardiovascular No exercise intolerance 01/11/2013 Cardiovascular No orthopnea 01/11/2013 Cardiovascular No palpitations 01/11/2013 Ears/Nose/Throat/Neck No hearing loss 01/11/2013 Ears/Nose/Throat/Neck No nasal discharge 01/11/2013 Ears/Nose/Throat/Neck No sinus congestion 01/11/2013 Ears/Nose/Throat/Neck No sore throat 01/11/2013 Ears/Nose/Throat/Neck hoarseness 01/11/2013 Constitutional fatigue 0 01/11/2013 Eyes vision change 01/11 Constitutional No fever 07/22/2011 Gastrointestinal No abdominal pain 07/22/2011 Gastrointestinal No diarrhea 07/22/2011 Gastrointestinal No constipation 07/22/2011 Gastrointestinal No nausea 07/22/2011 Gastrointestinal No vomiting 07/22/2011 Respiratory No cough Dermatologic rash 2010 Dermatologic sores 07/22 Constitutional No fever 07/21/2011 Dermatologic rash 2010 Respiratory No cough Gastrointestinal No abdominal pain 07/21/2011 Gastrointestinal No constipation 07/21/2011 Gastrointestinal No diarrhea 07/21/2011 Dermatologic sores 07/21 Cardiovascular No arrhythmia 06/02/2011 Cardiovascular No chest pain/pressure 06/02/2011 Cardiovascular No edema 06/02/2011 Cardiovascular No exercise intolerance 06/02/2011 Cardiovascular No orthopnea 06/02/2011 Cardiovascular No palpitations 06/02/2011 Hematologic/Lymphatic lymph node enl argement/mass 06/02/2011 Constitutional weight gain/obesity 04/20/2011 Cardiovascular hypertension 04/20/2011 Endocrine hyperglycemia 04/20/2011 Endocrine hyperlipidemia 04/20/2011 Hematologic/Lymphatic lymph node enl argement/mass 04/20/2011 Constitutional No fever 04/13/2011 Ears/Nose/Throat/Neck sore throat 04/13/2011 Ears/Nose/Throat/Neck sinusitis 04/13/2011 Cardiovascular hypertension 04/13/2011 Cardiovascular No cardiac murmur 04/13/2011 Cardiovascular No syncope 04/13/2011 Cardiovascular No arrhythmia 04/13/2011 Respiratory No cigarette smoking 04/13/2011 Respiratory No cough 05/2011 Respiratory No asthma Gastrointestinal No diarrhea 04/13/2011 Gastrointestinal No constipation 04/13/2011 Gastrointestinal No nausea 04/13/2011 Dermatologic No rash 05/2011 Dermatologic No sores Ears/Nose/Throat/Neck tinnitus 04/13/2011 Hematologic/Lymphatic lymph node enl argement/mass 04/13/2011 Musculoskeletal No muscle weakness 04/13/2011 Musculoskeletal No myalgias 04/13/2011 Musculoskeletal No stiffness 04/13/2011 Musculoskeletal No swelling 04/13/2011 Neurologic No dizziness 04/13/2011 Neurologic No headache 0 04/13/2011 Neurologic No neck pain 04/13/2011 Neurologic No syncope Endocrine No goiter 05/2011 Endocrine No hyperglycemia 04/13/2011 Endocrine No hypoglycemia 04/13/2011 Physical Exam Exam Name System Name It em Name Status Result Effective Dates Notes Full Exam - General Constitutional general appearance Overall: well nourished 01/11/2013 None Full Exam - General Constitutional general appearance Overall: well developed 01/11/2013 None Full Exam - General Constitutional general appearance Overall: in no acute distress 01/11/2013 None Full Exam - General Neurologic mental status Overall: alert 3 None Full Exam - General Neurologic mental status Overall: oriented 01/11/2013 None Full Exam - General Psychiatric mood and affect Overall: normal mood and affect 01/11/2013 None Full Exam - General Musculoskeletal spine, ribs and pelvis Spine: tender @ cervical spine 01/11/2013 None Full Exam - General Musculoskeletal spine, ribs and pelvis Spine: tender @ thoracic spine 01/11/2013 None Full Exam - General Musculoskeletal spine, ribs and pelvis Spine: tender @ lumbar spin e 01/11/2013 None Full Exam - General Abdomen abdominal exam Overall: no masses 01/11/2013 None Full Exam - General Abdomen abdominal exam Overall: no tenderness 01/11/2013 None Full Exam - General Abdomen abdominal exam Overall: normal bowel sounds 01/11/2013 None Full Exam - General Abdomen abdominal exam Overall: soft 01/11/2013 None Full Exam - General Cardiovascular auscultation of heart Overall: regular rate 01/11/2013 None Full Exam - General Cardiovascular auscultation of heart Overall: normal heart sounds 01/11/2013 None Full Exam - General Cardiovascular auscultation of heart Overall: no murmurs 01/11/2013 None Full Exam - General Respiratory auscultation Overall: breath sounds clear bilater ally 01/11/2013 None Full Exam - General Ears/Nose/Throat otoscopic exam Overall: external auditory canals clear 01/11/2013 None Full Exam - General Ears/Nose/Throat otoscopic exam Overall: tympanic membranes clear 01/11/2013 None Full Exam - General Ears/Nose/Throat internal nose Overall: bilateral nasal cavities clear 01/11/2013 None Full Exam - General Ears/Nose/Throat oral cavity/pharynx/larynx Overall: oral mucosa clear 01/11/2013 None Full Exam - General Neck inspection of neck Masses: firm 01/11/2013 None Full Exam - General Cardiovascular extremities Overall: no clubbing 01/11/2013 None Full Exam - General Cardiovascular extremities Overall: No edema 01/11/2013 None Full Exam - General Cardiovascular extremities Overall: No cyanosis 01/11/2013 None Full Exam - General Constitutional general appearance Overall: well nourished 07/22/2011 None Full Exam - General Constitutional general appearance Overall: well developed 07/22/2011 None Full Exam - General Constitutional general appearance Overall: in no acute distress 07/22/2011 None Full Exam - General Integument inspection of skin Rash/Lesions: papule 07/22/2011 papules extending across bottom of lower breast tissue Full Exam - General Psychiatric orientation/consciousness Overall: oriented to person, place and time 07/22/2011 None Full Exam - General Respiratory auscultation Overall: breath sounds clear bilater ally 07/22/2011 None Full Exam - General Respiratory respiratory effort/rhythm Overall: no retractions 07/22/2011 None Full Exam - General Respiratory respiratory effort/rhythm Overall: normal rate 07/22/2011 increased papules present along inner aspect of dependent breast tissue. Pt reports tenderness and itching. Full Exam - General Constitutional general appearance Overall: well nourished 07/21/2011 None Full Exam - General Constitutional general appearance Overall: well developed 07/21/2011 None Full Exam - General Constitutional general appearance Overall: in no acute distress 07/21/2011 None Full Exam - General Respiratory auscultation Overall: breath sounds clear bilater ally 07/21/2011 None Full Exam - General Respiratory respiratory effort/rhythm Overall: no retractions 07/21/2011 None Full Exam - General Respiratory respiratory effort/rhythm Overall: normal rate 07/21/2011 None Full Exam - General Cardiovascular auscultation of heart Overall: normal heart sounds 07/21/2011 None Full Exam - General Cardiovascular auscultation of heart Overall: regular rate 07/21/2011 heart rate is 76 bpm. Full Exam - General Abdomen abdominal exam Overall: no tenderness 07/21/2011 None Full Exam - General Abdomen abdominal exam Overall: soft 07/21/2011 None Full Exam - General Abdomen abdominal exam Overall: no masses 07/21/2011 None Full Exam - General Abdomen abdominal exam Overall: normal bowel sounds 07/21/2011 None Full Exam - General Integument inspection of skin Rash/Lesions: patch 07/21/2011 area of cellulitis on left lower breast- warm to the touch with small lesions that appear as the beginning of ulcers. Full Exam - General Lymphatic neck nodes Overall: anterior cervical chain syl ign 07/21/2011 None Full Exam - General Lymphatic neck nodes Overall: posterior cervical chain be nign 07/21/2011 None Full Exam - General Psychiatric orientation/consciousness Overall: oriented to person, place and time 07/21/2011 None Full Exam - General Integument inspection of skin Location: abdomen 07/21/2011 peg tube insertion site appears to be no rmal and has no evidence of infection or drainage. Full Exam - General Constitutional general appearance Overall: in no acute distress 06/02/2011 None Full Exam - General Constitutional general appearance Overall: well developed 06/02/2011 None Full Exam - General Constitutional general appearance Overall: well nourished 06/02/2011 None Full Exam - General Neurologic mental status Overall: alert 1 None Full Exam - General Neurologic mental status Overall: oriented 06/02/2011 None Full Exam - General Psychiatric mood and affect Overall: normal mood and affect 06/02/2011 None Full Exam - General Lymphatic neck nodes Left anterior cervical chain: firm 06/02/2011 mass to right upper neck Full Exam - General Constitutional general appearance Overall: in no acute distress 05/04/2011 None Full Exam - General Constitutional general appearance Overall: well developed 05/04/2011 None Full Exam - General Constitutional general appearance Overall: well nourished 05/04/2011 None Full Exam - General Neurologic mental status Overall: alert 1 None Full Exam - General Neurologic mental status Overall: oriented 05/04/2011 None Full Exam - General Psychiatric mood and affect Overall: normal mood and affect 05/04/2011 None Full Exam - General Lymphatic neck nodes Left anterior cervical chain: size ( cm): about walnut sized 05/04/2011 None Full Exam - General Respiratory auscultation Right lower lung field: a normal exa m 04/20/2011 None Full Exam - General Cardiovascular auscultation of heart Overall: normal heart sounds 04/20/2011 None Full Exam - General Cardiovascular auscultation of heart Overall: no murmurs 04/20/2011 None Full Exam - General Cardiovascular auscultation of heart Rate: regular rate 04/20/2011 None Full Exam - General Cardiovascular auscultation of heart Rhythm: regular rhythm 04/20/2011 None Full Exam - General Cardiovascular auscultation of heart S1: a normal exam 04/20/2011 None Full Exam - General Cardiovascular auscultation of heart S2: a normal exam 04/20/2011 None Full Exam - General Cardiovascular auscultation of heart S3 (ventricular gallop): present 04/20/2011 None Full Exam - General Cardiovascular auscultation of heart S4 (atrial gallop): present 04/20/2011 None Full Exam - General Respiratory auscultation Overall: breath sounds clear bilater ally 04/20/2011 None Full Exam - General Respiratory auscultation Diffuse: a normal exam 04/20/2011 None Full Exam - General Respiratory auscultation Left upper lung field: a normal exam 04/20/2011 None Full Exam - General Respiratory auscultation Left lower lung field: a normal exam 04/20/2011 None Full Exam - General Respiratory auscultation Right upper lung field: a normal exa m 04/20/2011 None Full Exam - General Respiratory auscultation Right middle lung field: a normal ex am 04/20/2011 None Full Exam - General Constitutional general appearance Overall: well nourished 04/20/2011 None Full Exam - General Constitutional general appearance Overall: well developed 04/20/2011 None Full Exam - General Constitutional general appearance Overall: in no acute distress 04/20/2011 None Full Exam - General Neurologic mental status Overall: alert 1 None Full Exam - General Neurologic mental status Overall: oriented 04/20/2011 None Full Exam - General Psychiatric mood and affect Overall: normal mood and affect 04/20/2011 None Full Exam - General Lymphatic neck nodes Left anterior cervical chain: size ( cm): about walnut sized to right jaw 04/20/2011 None Full Exam - General Cardiovascular auscultation of heart Overall: regular rate 04/20/2011 None Full Exam - General Constitutional general appearance Nourishment: obese 04/13/2011 None Full Exam - General Constitutional general appearance Overall: well developed 04/13/2011 None Full Exam - General Constitutional general appearance Overall: in no acute distress 04/13/2011 None Full Exam - General Lymphatic neck nodes Right anterior cervical chain: numbe r of palpable nodes: 1 04/13/2011 None Full Exam - General Lymphatic neck nodes Right anterior cervical chain: size (cm): 3 04/13/2011 None Full Exam - General Lymphatic neck nodes Right anterior cervical chain: firm 04/13/2011 None Full Exam - General Lymphatic neck nodes Right anterior cervical chain: non-t [place] 04/13/2011 None Full Exam - General Lymphatic neck nodes Right anterior cervical chain: mobil e 04/13/2011 None Full Exam - General Psychiatric orientation/consciousness Overall: oriented to person, place and time 04/13/2011 None Full Exam - General Respiratory auscultation Overall: breath sounds clear bilater ally 04/13/2011 None Full Exam - General Respiratory respiratory effort/rhythm Overall: no retractions 04/13/2011 None Full Exam - General Respiratory respiratory effort/rhythm Overall: normal rate 04/13/2011 None Full Exam - General Ears/Nose/Throat otoscopic exam Overall: external auditory canals clear 04/13/2011 None Full Exam - General Ears/Nose/Throat otoscopic exam Overall: tympanic membranes clear 04/13/2011 None Full Exam - General Ears/Nose/Throat lips/teeth/gingiva Overall: benign lips 04/13/2011 None Full Exam - General Ears/Nose/Throat lips/teeth/gingiva Overall: normal dentition 04/13/2011 None Full Exam - General Ears/Nose/Throat lips/teeth/gingiva Overall: benign gingiva 04/13/2011 None Full Exam - General Ears/Nose/Throat oral cavity/pharynx/larynx Oropharynx: erythema 04/13/2011 None Full Exam - General Ears/Nose/Throat oral cavity/pharynx/larynx Oropharynx: exudate 04/13/2011 white patches on back of throat (not pustules) Full Exam - General Cardiovascular auscultation of heart Overall: regular rate 04/13/2011 None Full Exam - General Cardiovascular auscultation of heart Overall: normal heart sounds 04/13/2011 None History of Present Illness Symptom Name Status Resu lt Effective Date Notes hypoglycemia Quality sta ble 01/11/2013 None hypertension Quality sta ble 01/11/2013 None hypertension Quality imp roving 01/11/2013 None dysphagia Quality diffic ulty with solids 01/11/2013 None dysphagia Onset and Resolution ongoing 01/11/2013 has seen ENTand surgery a nd radiation oncology dysphagia Quality scratc hy 01/11/2013 None dysphagia Quality worsen ing 01/11/2013 None orthopnea Quality interm ittent 01/11/2013 None orthopnea Onset and Resolution sudden in onset 01/11/2013 had few times woke up in middle of night with feeling of airway being blocked off--thinks due to excessive mucus production hoarseness Quality raspy 01/11/2013 None hoarseness Onset and Resolution ongoing 01/11/2013 None hoarseness Quality chron ic 01/11/2013 None insomnia Quality difficu lty falling asleep 01/11/2013 None insomnia Quality disrupt ed sleep 01/11/2013 None insomnia Quality early a wakening 01/11/2013 None insomnia Quality worseni ng 01/11/2013 due to sensation of not b eing able to breath--feeling like blockage in lungs rash Location-Major on t he chest 07/22/2011 None rash Location-Trunk on t he left side of the chest 07/22/2011 None rash Location-Major on t he chest 07/21/2011 None rash Location-Trunk on t he left side of the chest 07/21/2011 pink, spotchy with bumps lymph node enlargement/mass Onset an d Resolution ongoing 06/02/2011 None lymph node enlargement/mass Quality hard 06/02/2011 None lymph node enlargement/mass Quality fixed 06/02/2011 None weight loss Quality acute 05/04/2011 None lymph node enlargement/mass Quality improving 05/04/2011 still there but smaller lymph node enlargement/mass Quality non- tender 04/20/2011 None lymph node enlargement/mass Quality improving 04/20/2011 None hyperlipidemia Labs TOTA L CHOL;304 04/20/2011 None hyperlipidemia Labs HDL: 38 04/20/2011 None hyperlipidemia Labs TG;3 68 04/20/2011 None hyperlipidemia Labs LDL; 192 04/20/2011 None sore throat Location dif fusely 04/13/2011 None sore throat Quality sharp 04/13/2011 None sore throat Onset of Symptom 2 days ago 04/13/2011 None sinus congestion Location on both sides 04/13/2011 None sinus congestion Quality acute 04/13/2011 None sinus congestion Quality fullness, yellow/green mucous. States has cough as a result of the drainage. 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 04/13/2011 None sinus congestion Onset of Symptom 2 days ago 04/13/2011 None lymph node enlargement/mass Location in the right epitrochlear area 04/13/2011 None lymph node enlargement/mass Quality hard 04/13/2011 None lymph node enlargement/mass Onset of Symptom 2 months ago, pt denies pain at site 04/13/2011 None Instructions Comment . Continue antibioti c therapy until culture results available. Started Acyclovir and topical Acyclovir. Pt. aware that we will notify of results as soon as they become available. Pt knows to monitor for fever or new symptoms. Will continue probiotic. . Finish omnicef Add Prednisone--if adenopathy persists will check CT of neck Add Lisinopril Diabetic Diet and will start metformin at next visit . Repeat one more ro und of abx with steroids to see if lymph node continues to regress as per patient request--wants to hold on CT scan Add Metformin after done with above . Proceed with CT sc an of neck and ENT evaluation . rocephin IM and wi ll start on Levaquin, and Bactrim. Pt. is sent for CBC, sed rate and blood culture X2 (one from port one from peripheral vein). Follow up tomorrow to track the infection. Pt. is advised to start probiotics while on multiple antibiotics. Pt. reports that he was taking Amoxicillin 4 times daily ([employer]-wisdom teeth romoval) Holding these while on other antibiotics. . Fasting labs: CBC, CMP, TSH, Free T4, insulin and lipid. Cefdinir. Discussed that he should monitor for worsening symptoms and notify us if he develops fever or worsening symptoms. . Check HbA1C with n ext lab Continue current meds including holding Lisinopril and Metformin Discussed PFT vs Bronchoscope Additional Source Comments This clinical document has been generated using [employer] software that has been certified by the Office of the National Coordinator for Health Information Technology (ONC 15.99.04.3023.[id number]) and the National Committee for Development Mgr (NCQA, as an eMeasure certified technology). FOR RECORDS PERTAINING TO PATIENTS WHO ARE OR HAVE BEEN ENROLLED IN A CHEMICAL D EPENDENCY/SUBSTANCE ABUSE PROGRAM, SOME INFORMATION MAY BE OMITTED. This clinica l summary was aggregated from multiple sources. Caution should be exercised in using it in the provision of clinical care. This summary normalizes information from multiple sources, and as a consequence, information in this document may ma terially change the coding, format and clinical context of patient data. In davion tion, data may be omitted in some cases. CLINICAL DECISIONS SHOULD BE BASED ON T HE PRIMARY CLINICAL RECORDS. [employer] provides no warranty or guara ntee of the accuracy or completeness of information in this document.The followi ng information is based on time limited clinical information
--- OUTSIDE RECORDS SUMMARY | 2020-03-31 01:37 | XMS REPORT | Clinical Summary ---
Author Author [facility] Address Unknown Phone Unavailable Care Team Providers Care Social Worker Masters Name Role Phone Timothy Sebastian MD Unavailable Cruzito Jackson MD Unavailable Bill Goodrich MD Unavailable Angella Rodriguez APRN Unavailable Jasbir Cullen MD Unavailable Gianna Sales MD Unavailable Christopher Chavarria MD Unavailable Abbey Licona RN Unavailable Unavailable Tani Galdamez MD Unavailable [place] SAFETY AND OCCUPATIONAL HEALTH MANAGER Unavailable Unavailable Mickie Campos MD Unavailable Aline Azar RN Unavailable Unavailable Hever Ta DO PCP German Rainey RN Unavailable Unavailable Yumi Quiroz RN Unavailable Unavailable Flora Cespedes MD Unavailable Luis Torrez RN Unavailable Unavailable Lexy Gong RN Unavailable Unavailable Nguyen Malhotra Unavailable Unavailable Source Comments Some departments are not documenting in the electronic medical record. If you d o not see the information that you expected, contact Release of Information in [facility] Information Management department at [phone] for further assistan ce in locating additional records.[facility] Allergies Comments Active Allergy Reactions Severity Noted Date Interaction with Pulmonary Hypertension medications. Nitroglycerin SEE COMMENTS 04/25/2014 Medications End Date Status Medication Sig Dispensed Refills Start Date Active warfarin (COUMADIN) 10 mg Take 10 mg by 0 tablet mouth daily. hold after 04/08/15 dose, resume post procedure per procedure physician Active levothyroxine (SYNTHROID) Take 125 mcg 0 125 mcg tablet by mouth daily. Active atorvastatin (LIPITOR) 20 Take 20 mg by 0 mg tablet mouth daily. 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 Has patient been referred for transplan t? Have palliative approaches been discuss ed? 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 Type II diabetes mellitus 06/24/2011 Resolved Problems Problem Noted Date Resolved Date JAIRON (acute kidney injury) 05/17/2014 04/14/2015 Abdominal pain 05/16/2014 04/14/2015 Pneumonia 04/16/2014 04/14/2015 Shock 04/16/2014 04/14/2015 Peritonitis 04/16/2014 04/14/2015 Ileus 04/16/2014 04/14/2015 Severe malnutrition 04/16/2014 04/14/2015 JAIRON (acute kidney injury) 04/16/2014 04/16/2014 Anemia 04/16/2014 04/14/2015 Leukocytosis 04/16/2014 04/14/2015 Septic shock 04/16/2014 04/16/2014 Acute respiratory failure 04/08/2014 04/14/2015 Severe sepsis 04/08/2014 04/14/2015 Diverticulitis 03/28/2014 04/14/2015 Airway obstruction 02/23/2013 04/14/2015 Immunizations Name Administration Dates Next Due Flu Vaccine Trivalent =>3 10/23/2015, 11/14/2014 Yo (Preservative Free) Pneumococcal Vaccine 04/26/2014 (23-Xochitl Adult) Family History Medical History Relation Name Comments Asthma Brother Cancer Father Cancer-Prostate Father Cancer Mother Allergy-severe Neg Hx Anemia Neg Hx Anesthetic Complication Neg Hx Defect Neg Hx Blood Clots Neg Hx Diabetes Neg Hx Dizziness Neg Hx Growth/Development Neg Hx Disorders Hearing Loss Neg Hx Heart Attack Neg Hx High Cholesterol Neg Hx Hypertension Neg Hx Migraines Neg Hx Seizures Neg Hx Stroke Neg Hx Relation Name Status Comments Brother Father Mother Social History Date Tobacco Use Types Packs/Day Years Used Quit: 06/24/2005 Former Smoker Cigarettes 1 20 Smokeless Tobacco: Never Used Drinks/Week oz/Week Comments Alcohol Use 8 oz of rogelio a wee k No Sex Assigned at Date Recorded Not on file Industry Job Start Date Occupation Not on file Not on file Not on file Travel End Travel History Travel Start No recent travel history available. Last Filed Vital Signs Reading Time Taken Comments Vital Sign 134/88 04/25/2017 10:51 AM CDT Blood Pressure 72 04/25/2017 10:51 AM CDT Pulse 36.7 C (98 F) 04/25/2017 10:51 AM CDT Temperature 16 04/25/2017 10:51 AM CDT Respiratory Rate 97% 04/25/2017 10:51 AM CDT ra Oxygen Saturation - - Inhaled Oxygen Concentration 104 kg (229 lb 3.2 oz) 04/25/2017 10:51 AM CDT Weight 188 cm (6' 2") 04/25/2017 10:51 AM CDT Height 29.43 04/25/2017 10:51 AM CDT Body Mass Index Plan of Treatment Health Maintenance Due Date Last Done Comments DILATED EYE EXAM 1974 DTAP/TDAP VACCINES (1 - 1974 Tdap) FOOT EXAM 1974 HBA1C 1974 HEPATITIS C SCREENING 1974 MICROALBUMIN 1974 PHYSICAL (COMPREHENSIVE) 1974 EXAM SHINGLES RECOMBINANT 2006 VACCINE (1 of 2) INFLUENZA VACCINE 08/07/2020 10/23/2015, 11/14/2014 COLORECTAL CANCER 05/13/2025 05/13/2015, SCREENING 03/10/2015 HIV SCREENING Completed 04/16/2014 PNEUMONIA VACCINE (DM) Completed 04/26/2014 Results Not on filefrom Last 3 Months Additional Health Concerns Resolved Time Infection Noted Time [place] 04/15/2015 8:44 AM CDT Insurance Type Payer Benefit Subscriber ID Effective Phone Address Plan / Dates Group HMO BCBS iLostBS xxxxxxxxxxxx 2015-P Aframe -6948 German Arriaga Third Self 1955 [address] (Home) [place] [phone] Liability Advance Directives 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 needed 05/20/2014 5:13 PM Full Code 05/16/2014 12:02 AM Provider has discussed Code Status Yes w/Patient or Family? 05/07/2014 5:45 PM Full Code 03/29/2014 8:33 AM Provider has discussed Code Status No, more discussi on w/Patient or Family? needed 03/29/2014 8:33 AM Full Code 03/28/2014 9:59 PM Provider has discussed Code Status No, more discussi on w/Patient or Family? needed 03/28/2014 9:59 PM Full Code 03/28/2014 7:50 PM Provider has discussed Code Status No, more discussi on w/Patient or Family? needed
--- OUTSIDE RECORDS SUMMARY | 2020-03-31 01:38 | XMS REPORT | CCD ---
Author Author German Elder APRN Organization [facility] Address [address] [place] [id number] Phone Care Team Providers Care Business Project Analyst Name Role Phone PP Unavailable CCM Unavailable Summary Purpose Interface Exchange Insurance Providers Payer name Policy type / Coverage type Covered alliance party ID Effective Begin Date Effective End Date [employer] Co mmercial Insurance [id number] Unkno wn [employer] Co mmercial Insurance [id number] Unkno wn Family history Grandparents Diagnosis Age At Onset No Family Disease Entered N/A Father Diagnosis Age At Onset Prostate Cancer Unknown Mother Diagnosis Age At Onset *Denies any medical problems Unknown Social History Social History Element Codes Description Effective Dates Tobacco history SNOMED CT: 356046836 Quit less than 5 years ago 05/19/2011 Allergies, Adverse Reactions, Alerts Substance Reaction Codes Entered Date Inactivated Date Status * NO KNOWN DRUG NETTA RGIES Unknown 04/13/2011 No Inactive Date Active Past Medical History Illness Codes Condition Status Onset Date Resolved Date DYSPHAGIA NEC ICD-9: 787.29 Active 01/11/2013 Unknown DYSPNEA ICD-9: 786.09 Active 01/11/2013 Unknow n Hoarseness ICD-9: 784.42 Active 01/11/2013 Unknow n HYPOTHYROIDISM ICD-9: 244.9 Active 01/11/2013 Unknown Shingles ICD-9: 053.9 Active 07/22/2011 Unknow n Cellulitis ICD-9: 682.9 Active 07/21/2011 Unknow n Hyperinsulinemia ICD-9: 251.1 Active 04/20/2011 Unknown *Denies any medical problems Unknown Active 1 Unknown HYPERTENSION ICD-9: 401.9 Active 04/13/2011 Unknown LYMPHADENOPATHY ICD-9: 785.6 Active 04/13/2011 Unknown PHARYNGITIS, ACUTE ICD- 9: 462 Active 04/13/2011 Unknown Problems Condition Codes Effectiv e Dates Condition Status DYSPHAGIA NEC ICD-9: 787.29 01/11/2013 Active DYSPNEA ICD-9: 786.09 01/11/2013 Active Hoarseness ICD-9: 784.42 01/11/2013 Active HYPOTHYROIDISM ICD-9: 244.9 01/11/2013 Active Shingles ICD-9: 053.9 07/22/2011 Active Cellulitis ICD-9: 682.9 07/21/2011 Active Hyperinsulinemia ICD-9: 251.1 04/20/2011 Active *Denies any medical problems Unknown 04/13/2011 Activ e HYPERTENSION ICD-9: 401.9 04/13/2011 Active LYMPHADENOPATHY ICD-9: 785.6 04/13/2011 Active PHARYNGITIS, ACUTE ICD- 9: 462 04/13/2011 Active Medications Medication Codes Instruc tions Start Date Stop Date Sta tus Fill Instructions metformin ER 500 mg tablet,extended release 24 hr RxNorm: 729826 1 Tablet(s) PO QD due for yearly lab/exam 07/14/2012 10/11/2012 Inactive lisinopril 40 mg tablet RxNorm: 313868 1 Tablet(s) PO QD due for yealy labs/exa m in 07/14/2012 01/10/2013 Inactive TAKE 1 TABLET BY MOUTH ASHLY Y FOR BLOOD PRESSURE;Patient requests 90 day supply lisinopril 40 mg tablet RxNorm: 516027 1 Tablet(s) PO QD due for yealy labs/exa m in 06/16/2012 07/13/2012 Inactive TAKE 1 TABLET BY MOUTH ASHLY Y FOR BLOOD PRESSURE;Patient requests 90 day supply metformin ER 500 mg tablet,extended release 24 hr RxNorm: 346189 1 Tablet(s) PO QD due for yearly lab/exam 06/16/2012 07/13/2012 Inactive lisinopril 40 mg Tab RxNorm: 970918 1 Tablet(s) PO QD 11/02/2011 04/29/2012 Inactive TAKE 1 TABLET BY MOUTH DAILY FOR BLOOD PRESSURE;Patient requests 90 day supply lisinopril 40 mg Tab RxNorm: 106845 1 Tablet(s) PO QD 2011 11/02/2011 Inactive for BP Levaquin 500 mg Tab RxNorm: 721088 1 Tablet(s) PO QD 07/21/2011 07/27/2011 Inactive Bactrim DS 800 mg-16 0 mg Tab RxNorm: 021219 1 Tablet(s) PO BID 07/21/2011 07/30/2011 Inactive metformin ER 500 mg 24 hr Tab RxNorm: 242702 1 Tablet(s) PO QD 05/04/2011 07/02/2011 Inactive prednisone 20 mg Tab RxNorm: 679466 1 Tablet(s) PO BID 04/20/2011 04/29/2011 Inactive lisinopril 40 mg Tab RxNorm: 297892 1 Tablet(s) PO QD for BP 04/20/2011 08/17/2011 Inactive cefdinir 300 mg Cap RxNorm: 709792 1 Capsule(s) PO BID 04/13/2011 04/22/2011 Inactive levothyroxine 100 mc g tablet RxNorm: 047706 1 Tablet(s) PO QD No Start Date Active Mucinex 600 mg table t,extended release RxNorm: 873814 1 Tablet(s) PO BID No Start Date Active Zithromax Z-Bentley 250 mg Tab RxNorm: 567086 Tablet(s) PO No Start Date 06/01/2011 Inactive as directed amoxicillin 500 mg Cap RxNorm: 874798 1 Capsule(s) PO QID No Start Date 01/10/2013 Inactive hydrocodone-acetamin ophen 5 mg-500 mg Cap RxNorm: 362502 1 Capsule(s) PO QID No Start Date 01/10/2013 Inactive acyclovir 800 mg Tab RxNorm: 577755 1 Tablet(s) PO No Start Date 01/10/2013 Inactive one tablet PO five times daily for 10 days. Medrol (Bentley) 4 mg Ta bs in a Dose Pack RxNorm: 513917 Tablet(s) PO No Start Date 06/01/2011 Inactive as directed Medication Administered No Medication Administered data Immunizations No Immunization data Assessments Condition Codes Effectiv e Dates HYPOTHYROIDISM ICD-9: 244.9 01/11/2013 Hoarseness ICD-9: 784.42 01/11/2013 DYSPHAGIA NEC ICD-9: 787.29 01/11/2013 DYSPNEA ICD-9: 786.09 Shingles ICD-9: 053.9 Cellulitis ICD-9: 682.9 07/21/2011 LYMPHADENOPATHY ICD-9: 785.6 06/02/2011 HYPERTENSION ICD-9: 401.9 05/04/2011 HYPOGLYCEMIA NEC ICD-9: 251.1 05/04/2011 PHARYNGITIS, ACUTE ICD-9: 462 04/13/2011 Reason For Visit Reason For Visit Effective Dates Notes follow up 01/11/2013 Sto pped metformin rash 07/22/2011 rash 07/21/2011 follow up 06/02/2011 5wk fwup follow up 05/04/2011 2wk fwup follow up 04/20/2011 dis cuss labs sore throat 04/13/2011 Results Observation Observation Code Item Item Code Result Date PSA EQUIMOLAR ADE 13256 PSA EQ 0.58 NG/ML 04/20/2011 FREE T4 01497 FREE T4 1.11 NG/DL 04/16/2011 THYROID STIMULATING HORMONE 44081 TSH 2.303 uIU/ML 1 COMPREHENSIVE METABOLIC 95521 AST 34 U/L 04/16/2011 COMPREHENSIVE METABOLIC 16206 ALT 60 IU/L 04/16/2011 COMPREHENSIVE METABOLIC 37279 BUN 18 MG/DL 04/16/2011 COMPREHENSIVE METABOLIC 71463 ALBUMIN 4.7 GM/DL 04/16/2011 COMPREHENSIVE METABOLIC 64988 CHLORIDE 103 MMOL/L 04/16/2011 COMPREHENSIVE METABOLIC 16295 BILI TOT 0.5 MG/DL 04/16/2011 COMPREHENSIVE METABOLIC 23736 ALK PHOS 57 U/L 04/16/2011 COMPREHENSIVE METABOLIC 61193 SODIUM 138 MMOL/L 04/16/2011 COMPREHENSIVE METABOLIC 09439 CREATININE 0.97 MG/DL 04/16/2011 COMPREHENSIVE METABOLIC 39625 CALCIUM 10.2 MG/DL 04/16/2011 COMPREHENSIVE METABOLIC 49819 POTASSIUM 4.5 MMOL/L 04/16/2011 COMPREHENSIVE METABOLIC 91292 PROT TOT 7.6 GM/DL 04/16/2011 COMPREHENSIVE METABOLIC 81492 Glucose 108 MG/DL 04/16/2011 COMPREHENSIVE METABOLIC 13776 BICARB 24 MMOL/L 04/16/2011 COMPREHENSIVE METABOLIC 72067 ANION GAP 11 MEQ/L 04/16/2011 INSULIN SERUM 42957 INSU CHEMA 16.1 mU/L 04/16/2011 COMPLETE BLOOD COUNT 94301 WBC 9.1 10e9/L 04/16/2011 COMPLETE BLOOD COUNT 29223 RBC 5.20 10e12/L 1 COMPLETE BLOOD COUNT 68921 HGB 16.2 g/dL 04/16/2011 COMPLETE BLOOD COUNT 37014 HCT DET 47.3 % 04/16/2011 COMPLETE BLOOD COUNT 79689 MCV 91.0 fL 04/16/2011 COMPLETE BLOOD COUNT 61152 MCH 31.2 pg 04/16/2011 COMPLETE BLOOD COUNT 88720 MCHC 34.2 g/dL 04/16/2011 COMPLETE BLOOD COUNT 28875 PLT 272 10e9/L 04/16/2011 COMPLETE BLOOD COUNT 73663 MPV 10.5 fL 04/16/2011 COMPLETE BLOOD COUNT 40901 CITLALI % 45.6 % 04/16/2011 COMPLETE BLOOD COUNT 59241 LY % 40.9 % 04/16/2011 COMPLETE BLOOD COUNT 92213 MON % 9.8 % 04/16/2011 COMPLETE BLOOD COUNT 31831 EOS % 2.8 % 04/16/2011 COMPLETE BLOOD COUNT 11272 BASO % 0.9 % 04/16/2011 COMPLETE BLOOD COUNT 59445 RDW 13.6 % 04/16/2011 COMPLETE BLOOD COUNT 34382 ABS CITLALI 4.15 10e9/L 04/16/2011 COMPLETE BLOOD COUNT 40838 ABS LYMPH 3.72 10e9/L 04/16/2011 COMPLETE BLOOD COUNT 28314 ABS MONO 0.89 10e9/L 04/16/2011 COMPLETE BLOOD COUNT 16435 ABS EOS 0.25 10e9/L 04/16/2011 COMPLETE BLOOD COUNT 16469 ABS BASO 0.08 10e9/L 04/16/2011 COMPLETE BLOOD COUNT 44066 RDW-SD 44.9 fL 04/16/2011 LIPID GROUP [address] 38 MG/DL 04/16/2011 LIPID GROUP 67639 TRIG 368 MG/DL 04/16/2011 LIPID GROUP 56356 TEST L DL 192 MG/DL 04/16/2011 LIPID GROUP 36891 CHOL 304 MG/DL 04/16/2011 LIPID GROUP 68999 RCHOL/ HDL 8.00 RATIO 04/16/2011 GFR CALC 9450304 GFR AA >60 ML/MIN 04/16/2011 GFR CALC 3140234 GFR NON -AA >60 ML/MIN 04/16/2011 Review of Systems System Result Effective Dates Gastrointestinal dysphagia 01/11/2013 [...] Psychiatric No depression 01/11/2013 Endocrine No goiter 03/0 05/2013 Endocrine No hyperglycemia 01/11/2013 Endocrine No [...] 04/13/2011 Neurologic No syncope Endocrine No goiter /0 05/2011 Endocrine No hyperglycemia 04/13/2011 Endocrine No [...] heart Overall: normal heart sounds 04/13/2011 None Procedures Procedure Codes Date CEFTRIAXONE SODIUM I NJECTION CPT-4: J0696 07/21/2011 THER/PROPH/DIAG INJ SC/IM CPT-4: 46443 07/21/2011 Vital Signs Date Vital 01/11/2013 Blood Pressure 1: 118/76 Code: 8480-6 BMI: 26.6 Code: 95736-6 Heart Rate 1: 92 bpm Height: 6'2" Respiratory Rate: 28 bpm Temperature: 36.8 (C ) / 98.3 (F) Weight: 207 lbs 07/22/2011 [place] rature: 36.7 (C) / 98.0 (F) 07/21/2011 Weigh t: 261 lbs 06/02/2011 Blood Pressure 1: 138/92 Code: 8480-6 Heart Rate 1: 76 bpm Respiratory Rate: 20 bpm Temperature: 36.6 (C) / 97.8 (F) Weight: 266 lbs 05/04/2011 Blood Pressure 1: 118/86 Code: 8480-6 Heart Rate 1: 76 bpm Temperature: 36.3 (C) / 97.4 (F) Weight: 270 lbs 04/20/2011 Blood Pressure 1: 148/100 Code: 8480-6 Heart Rate 1: 96 bpm Temperature: 36.9 (C) / 98.4 (F) Weight: 284 lbs 04/13/2011 Blood Pressure 1: 148/106 Code: 8480-6 Blood Pressure 2: 160/122 Code: 8480-6 BMI: 36.5 Code: 66872-6 Heart Rate 1: 78 bpm Height: 6'2" Temperature: 37.0 (C) / 98.6 (F) Weight: 284 lbs Functional Status No Functional Status data History of Present Illness Symptom Name Status [...] pt denies pain at site 04/13/2011 None Advance Directives No Advance Directive data Encounters Encounter Performer Loca tion Codes Date (07016) OFFICE/OUTPA TIENT VISIT EST Diagnosis: DYSPHAGIA NEC[ICD9: 787.29] Diagnosis: DYSPNEA[ICD9: 786.09] Diagnosis: HYPOTHYROIDISM[ICD9: 244.9] Diagnosis: Hoarseness[ICD9: 784.42] Mando GILMORE SAngie NICHOLENDER DO [facility] CPT-4: 55075 01/11/2013 OFFICE/OUTPATIENT SIT EST Diagnosis: Shingles[ICD9: 053.9] Mando GILMORE SAngie NICHOLENDER DO [facility] CPT-4: 15976 07/22/2011 OFFICE/OUTPATIENT SIT EST Diagnosis: Cellulitis[ICD9: 682.9] Mando GILMORE SAngie ORENDER DO [facility] CPT-4: 41078 07/21/2011 OFFICE/OUTPATIENT SIT EST Mando GILMORE SAngie ORE NDER DO [facility] CPT-4: 48075 06/02/2011 OFFICE/OUTPATIENT SIT EST Mando GILMORE SAngie ORE NDER DO [facility] CPT-4: 79020 05/04/2011 ([id number]) OFFICE/OUTPA TIENT VISIT EST Mando GILMORE SAngie NICHOLE NDER DO [facility] CPT-4: 00204 04/20/2011 ([id number]) OFFICE/OUTPA TIENT VISIT [facility] CPT-4: 98064 04/13/2011 Plan of Care Planned Activity Notes C odes Status Date Visit Plan: Check HbA1C with next l ab Continue current meds including holding Lisinopril and Metformin Discussed PFT vs Bronchoscope 01/11/2013 Appointment: Mando Lee WPtel: [address] [place], [place] [phone] 01/10 left message FOLLOW UP 01/11/2013 Patient Education: Patient Medication Summary Completed 01/11/2013 Visit Plan: Continue antibiotic the rapy until culture results available. Started Acyclovir and topical Acyclovir. Pt. aware that we will notify of results as soon as they become available. Pt knows to monitor for f ever or new symptoms. Will continue probiotic. 07/22/2011 Appointment: Ericka Elder WPtel: [address] [place], [place] [phone] FOLLOW UP 07/22/2011 Patient Education: Patient Medication Summary Completed 07/22/2011 Visit Plan: rocephin IM and will st art on Levaquin, and Bactrim. Pt. is sent for CBC, sed rate and blood culture X2 (one from port one from peripheral vein). Follow up tomorrow to track the infection. Pt. is advised to start probiotics while on multiple antibiotics. Pt. reports that he was taking Amoxicillin 4 times daily ([employer]-wisdom teeth romoval) Holding these while on other antibiotics. 07/21/2011 Appointment: Ericka Elder WPtel: [address] [place], [place] [phone] ACUTE ILLNESS 07/21/2011 Patient Education: Patient Medication Summary Completed 07/21/2011 Visit Plan: Proceed with CT scan of neck and ENT evaluation 06/02/2011 Appointment: Mando Lee WPtel: [address] [place], [place] [phone] FOLLOW UP 06/02/2011 Patient Education: Patient Medication Summary Completed 06/02/2011 Visit Plan: Repeat one more round o f abx with steroids to see if lymph node continues to regress as per patient request--wants to hold on CT scan Add Metformin after done with above 05/04/2011 Appointment: Mando Lee WPtel: [address] [place] [address] FOLLOW UP 05/04/2011 Patient Education: Patient Medication Summary Completed 05/04/2011 Visit Plan: Finish omnicef Add Pred nisone--if adenopathy persists will check CT of neck Add Lisinopril Diabetic Diet and will start metformin at next visit 04/20/2011 Appointment: Mando Lee WPtel: [address] [place] [address] FOLLOW UP 04/20/2011 Patient Education: Patient Medication Summary Completed 04/20/2011 Visit Plan: Fasting labs: CBC, CMP, TSH, Free T4, insulin and lipid. Cefdinir. Discussed that he should monitor for worsening symptoms and notify us if he develops fever or worsening symptoms. 04/13/2011 Appointment: Ericka Elder WPtel: [address] [place] [address] NEW PATIENT 04/13/2011 Patient Education: Patient Medication Summary Completed 04/13/2011 Instructions Comment . Continue antibioti c therapy [...] while on other antibiotics. . Fasting labs: CBC , CMP, TSH, Free T4, insulin and lipid. Cefdinir. Discussed that he should monitor for worsening symptoms and notify us if he develops fever or worsening symptoms. . Check HbA1C with n ext lab Continue current meds including holding Lisinopril and Metformin Discussed PFT vs Bronchoscope
--- NOTE | 2020-03-31 02:06 | NUR ---
0203- CALLED BACK TO BE SEEN AND NOT IN THE ED.
== END 2020-03-31 02:03 | disposition left against medical advice (07) ==
LOC: EDUNIT# 01:26 → ER 01:28
DX: R10.9 Unspecified abdominal pain (principal); R50.9 Fever, unspecified; R11.2 Nausea with vomiting, unspecified

== ENCOUNTER → 2021-10-30 | Outpatient (CLI) | payer BC ==
[2021-10-30 11:57] LABS: INR 1.9 (0.8-1.4); PROTHROMBIN TIME PATIENT 21.9 SEC (12.2-14.7)
== END ==
LOC: LAB 11:29
PROVIDERS: ATTEND Family Medicine
DX: I48.0 Paroxysmal atrial fibrillation (principal)
CPT/HCPCS: 36415; 85610

== ENCOUNTER 2022-06-12 14:12 | Emergency (ER) | payer OTHER ==
[~2022-06-12] VITALS: Ht 187 cm; Wt 105.0 kg
[2022-06-12 14:22] VITALS: BP 147/89
--- NOTE | 2022-06-12 14:40 | ED General ---
General Chief Complaint: COVID19 Suspect/Confirmed Stated Complaint: COVID +, CANT SWALLOW PILLS WANTS INFUSION Nursing Triage Note: pt. reports recent exposure 2 days ago. reports testing yesterday and was negative. reports today had a fever of 99.7f and test postive today at [facility]. pt. was given molnupiravir to take BID for 5 days, but pt. is unable to swallow medication d/t chronic esophogeal complications. pt. here for possible IV option if able. pt. 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 Symptoms started today. Tested positive at [facility] and was given oral antiviral. 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 It was recommended to come over to the ED for monoclonal antibody infusion. Patient does indeed meets criteria. Does not have any chest pain, cough, shortness of breath, vomiting, diarrhea, visual changes, unilateral muscle weakness or sensory changes. Allergies and Home Medications Allergies Coded Allergies: nitroglycerin (Verified Adverse Reaction, Intermediate, PULMONARY, 05/15/14) Patient Home Medication List Home Medication List Reviewed: Yes Amoxicillin/Potassium Clav (Augmentin 875-125 Tablet) 1 Each Tablet, 1 EACH PO BID Prescribed by: DREW ADAMS on 05/23/18 0801 Atorvastatin Calcium (Atorvastatin Calcium) 20 Mg Tablet, 20 MG PO HS, (Reported) Entered as Reported by: FRANKY IBANEZ on 05/20/18 0151 Diphenhydramine Hcl (Diphenhydramine 25 Mg) 25 Mg Tablet, 12.5-25 MG PO HS, (Reported) Entered as Reported by: VERNON LIMON on 05/15/14 1503 Enoxaparin Sodium (Lovenox) 100 Mg/1 Ml Syringe, 100 MG SQ BID Prescribed by: DREW ADAMS on 05/23/18 0801 Levothyroxine Sodium (Levothyroxine 100 Mcg Tab) 100 Mcg Tablet, 150 MCG PO HS, (Reported) Entered as Reported by: NAUN SALGUERO on 02/14/13 1832 Warfarin Sodium (Warfarin Sodium) 6 Mg Tablet, 10 MG PO HS, (Reported) Entered as Reported by: RADHA MEZA on 05/15/14 1535 Review of Systems Review of Systems Constitutional: chills; No diaphoresis; malaise, weakness EENTM: No ear pain, No blurred vision, No double vision Respiratory: No cough, No short of breath Cardiovascular: No chest pain Gastrointestinal: No abdominal pain, No dysphagia, No nausea, No vomiting Genitourinary: No decreased output, No discharge Musculoskeletal: No back pain, No joint pain Skin: No change in color, No change in hair/nails Psychiatric/Neurological: Denies Depressed Past Oysivyj-[id number] Hx Patient Social History Tobacco Use?: No Use of E-Cig and/or Vaping dev: No Substance use?: No Alcohol Use?: No Pt feels they are or have been: No Immunizations Up To Date Influenza Vaccine Up-to-Date: Yes; Up-to-Date COVID19 Vaccine 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 Seasonal Allergies Seasonal Allergies: No Past Medical History Surgeries: Yes (post placement (left groshong),PEG TUBE,CATRINA DRAIN, DETACHED RETINA) Abdominal, Eye Surgery, Tonsillectomy, Tracheostomy Respiratory: Yes (RESP FAILURE, PULMONARY HTN) Pneumonia, Pulmonary Embolism Currently Using CPAP: No Currently Using BIPAP: No Cardiac: Yes (surg for pulmonary HTN; diverticulitis-perforation requiring colon surg) High Cholesterol Neurological: No Reproductive Disorders: No Sexually Transmitted Disease: No HIV/AIDS: No Genitourinary: No Gastrointestinal: Yes (DIVERTICULITIS with history of perforation requiring surgery) C-Diff Musculoskeletal: No Endocrine: Yes (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 2.0oz. 106.232178wy; 30.00 BMI Method:Stated General Appearance: No Apparent Distress Eyes: Bilateral Eye Normal Inspection, Bilateral Eye PERRL, Bilateral Eye EOMI HEENT: PERRL/EOMI, TMs Normal, Normal ENT Inspection, Pharynx Normal Neck: Full Range of Motion, Normal Inspection, Non Tender, Supple Respiratory: Chest Non Tender, Lungs Clear, Normal Breath Sounds Cardiovascular: Regular Rate, Rhythm, No Edema, No Gallop, No JVD Gastrointestinal: Normal Bowel Sounds, No Organomegaly, No Pulsatile Mass, Non Tender Back: Normal Inspection, No CVA Tenderness, No Vertebral Tenderness Extremity: Normal Capillary Refill, Normal Inspection, Normal Range of Motion, Non Tender Neurologic/Psychiatric: Alert, Oriented x3, No Motor/Sensory Deficits, Normal Mood/Affect, 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 II-XII Norm as Tested Skin: Normal Color, Warm/Dry Progress/Results/Core Measures Suspected Sepsis SIRS Temperature: Pulse: 90 Respiratory Rate: 18 Blood Pressure 147 /89 Mean: 108 Results/Orders My Orders Orders - NAYA RAYMOND Iv/Invasive Line Insertion .IV start (06/12/22 14:36) Bebtelovimab (Bebtelovimab) (06/12/22 14:45) Nursing Communication (Order) (06/12/22 14:36) Medications Given in ED Current Medications Medications Dose Ordered Sig/Nika Route Start Time Stop Time Status Last Admin Dose Admin Bebtelovimab 175 mg ONCE ONCE IV 06/12/22 14:45 06/12/22 14:46 DC 06/12/22 15:05 175 MG Vital Signs/I&O 06/12/22 06/12/22 14:22 15:03 Temp 37.0 Pulse 90 80 Resp 18 20 B/P (MAP) 147/89 (108) 133/89 Pulse Ox 95 95 O2 Delivery Room Air Room Air Capillary Refill : Less Than 3 Seconds Blood Pressure Mean: 108 Departure Communication (PCP) Patient tested positive for COVID. Only complaint is body aches headache. Patient not able to tolerate p.o. antivirals that was prescribed to him today. Was sent to the ED for the immunoglobulin therapy. Discussed risks of the infusion patient agreed to proceed. No chest pain, cough or shortness of breath. Exam otherwise benign. Vital signs stable. Continue with conservative treatment at home. If any worsening symptoms such as chest pain short of breath to return back to ED. Discussed pulse ox. Patient denies of any cardiac or pulmonary history history of tonsillar cancer. Reports history of difficulty sw allowing Impression Primary Impression: COVID-19 Disposition: 01 HOME, SELF-CARE Condition: Stable Departure-Patient Inst. Decision time for Depature: 15:51 Referrals: IRA LOPEZ DO (PCP/Family) Primary Care Physician Patient Instructions: COVID-19 (DC) Add. Discharge Instructions: If any worsening symptoms return back to ED for further evaluation All discharge instructions reviewed with patient and/or family. Voiced understanding. NAYA RAYMOND Jun 12, 2022 14:40
[2022-06-12] MEDS ORDERED: BEBTELOVIMAB 175 MG/2 ML VIAL IV ONE (14:45)
== END 2022-06-12 16:15 | disposition home or self-care (01) ==
LOC: EDUNIT# 14:12 → ER 14:15
DX: U07.1 COVID-19 (principal); Z73.0 Burn-out